=== PATIENT | male | born 1950 | race Caucasian/White ===

== ENCOUNTER 2020-11-16 19:07 | Inpatient (IN) ==
--- NOTE | 2020-11-16 19:21 | DR.URIAD ---
HPI Time Seen Time Seen by Provider: 11/16/20 19:15 HPI Comment HPI Comment: Has been dizzy and falling for the past day after testing positive for covid two weeks ago; cough, congestion, nausea and loss of smell/taste persist; he's been unable to eat and has abd pain and some loose stools; weak ROS Review of Systems Eyes: No Symptoms Reported ENTM: No Symptoms Reported Cardiovascular: No Symptoms Reported Genitourinary: No Symptoms Reported Neurological: No Symptoms Reported Integumentary: No Symptoms Reported Hematologic/Lymphatic: No Symptoms Reported Endocrine: No Symptoms Reported Psychiatric: No Symptoms Reported PE Vital Signs Vitals: Temperature 98.2 F Pulse Rate 81 Respiratory Rate 26 Blood Pressure 109/60 O2 Sat by Pulse Oximetry 90 General Limitations: No Limitations General Appearance: Alert, In No Apparent Distress and Other (appears weak) Head Head Exam: Normal Inspection and Atraumatic Eyes Eye exam: Normal Appearance and PERRL Neck Neck Exam: Normal Inspection, Full ROM and Trachea Midline Chest Chest Inspection: Normal Inspection Respiratory Respiratory Exam: Normal Lung Sounds Bilat Respiratory Exam: Bilateral: Clear to Auscultation Cardiovascular Cardiovascular Exam: Regular Rate and Normal Rhythm Abdominal Exam Abdominal Exam: Normal Inspection, Normal Bowel Sounds and Soft Extremeties Extremities Exam: Normal Inspection Back Back Exam: Normal Inspection Neurologic Neurological Exam: Alert and Oriented X3 Psychiatric Psychiatric Exam: Normal Affect and Normal Mood Skin Skin Exam: Warm, Dry, Intact and Normal Color MDM Differential Diagnosis Differential Diagnosis: Viral pharyngitis, Pneumonia and URI COURSE Treatment Treatment: test results discussed with pt who accepts admission ROR Labs Reviewed Laboratory Results Reviewed?: Yes Result Diagrams: 11/16/20 20:25 11/16/20 20:25 Laboratory: WBC 9.0 X10^3/uL (3.6-10.0) 11/16/20 20:25 RBC 4.35 X10^6/uL (4.7-6.0) L 11/16/20 20:25 Hgb 13.6 g/dL (13.5-18.0) 11/16/20 20:25 Hct 37.2 % (42.0-54.0) L 11/16/20 20:25 MCV 85.7 fL (80.0-100.0) 11/16/20 20:25 MCH 31.2 pg (27.0-34.0) 11/16/20 20:25 MCHC 36.4 g/dL (33.0-35.0) H 11/16/20 20:25 RDW 13.2 % (11.6-16.5) 11/16/20 20:25 Plt Count 185 X10^3/uL (150.0-450.0) 11/16/20 20:25 MPV 7.5 fL (7.4-11.0) 11/16/20 20:25 Neut % (Auto) 89.3 % (42.0-75.0) H 11/16/20 20:25 Lymph % (Auto) 5.3 % (21.0-51.0) L 11/16/20 20:25 [place] % (Auto) 5.1 % (0.0-13.0) 11/16/20 20:25 Eos % (Auto) 0.1 % (0.9-2.9) L 11/16/20 20:25 Baso % (Auto) 0.2 % (0.2-1.0) 11/16/20 20:25 Neut # (Auto) 8.0 x10^3/uL (2.2-4.8) H 11/16/20 20:25 Lymph # (Auto) 0.5 X10^3/uL (1.3-2.9) L 11/16/20 20:25 [place] # (Auto) 0.5 x10^3/uL (0.3-0.8) 11/16/20 20:25 Eos # (Auto) 0.0 x10^3/uL (0.0-0.2) 11/16/20 20:25 Baso # (Auto) 0.0 X10^3/uL (0.0-0.1) 11/16/20 20:25 Absolute Nucleated RBC 0.0 /100WBC 11/16/20 20:25 D-Dimer 1.28 ug/ml (0.0-0.57) H* 11/16/20 20:25 Sample Site Rbra 11/16/20 20:29 ABG pH 7.570 (7.35-7.45) H* 11/16/20 20: ABG pCO2 30.0 mmHg (35.0-45.0) L 11/16/20 20:29 ABG pO2 64.0 mmHg (80.0-100.0) L 11/16/20 20:29 ABG HCO3 27.5 mmol/L (22-26) H 11/16/20 20:29 ABG O2 Saturation 95.0 % (90-100) 11/16/20 20: ABG Base Excess 5.8 mmol/L (-2.0-2.0) H 11/16/20 20:29 Dmitry Test Na 11/16/20 20:29 A-a Gradient 48.0 mmHg 11/16/20 20:29 FiO2 21.0 11/16/20 20:29 Blood Gas Comments Princess well-mtf 11/16/20 20:29 Sodium 137 mmol/L (136-145) 11/16/20 20:25 Corrected Sodium 138 mmol/L (136-145) 11/16/20 20:25 Potassium 4.7 mmol/L (3.5-5.1) 11/16/20 20:25 Chloride 99 mmol/L (98-107) 11/16/20 20:25 Carbon Dioxide 29.7 mmol/L (21-32) 11/16/20 20:25 BUN 34 mg/dL (7-18) H 11/16/20 20:25 Creatinine 1.54 mg/dL (0.70-1.30) H 11/16/20 20:25 Est GFR (MDRD) Af Amer 58 (>60) L 11/16/20 20:25 Est GFR (MDRD) Non-Af 48 (>60) L 11/16/20 20:25 Glucose 128 mg/dL (65-99) H 11/16/20 20:25 Calcium 7.8 mg/dL (8.5-10.1) L 11/16/20 20:25 Corrected Calcium 8.5 mg/dL (8.5-10.1) 11/16/20 20:25 Ferritin 1723 ng/mL (26-388) H 11/16/20 20:25 Total Bilirubin 0.90 mg/dL (0.2-1.0) 11/16/20 20:25 AST 65 Units/L (15-37) H 11/16/20 20:25 ALT 73 Units/L (12-78) 11/16/20 20:25 Alkaline Phosphatase 46 Units/L (46-116) 11/16/20 20:25 Creatine Kinase 286 Units/L (39-308) 11/16/20 20:25 CK-MB (CK-2) < 1.0 ng/mL (0-4.0) 11/16/20 20:25 CK/CKMB % Calc 0.4 % (<4) 11/16/20 20:25 Troponin I < 0.02 ng/mL (0-1.5) 11/16/20 20:25 C-Reactive Protein 191.10 mg/L (0-3.0) H 11/16/20 20:25 B-Natriuretic Peptide 26.2 pg/mL (0-79) 11/16/20 20:25 Total Protein 6.5 g/dL (6.4-8.2) 11/16/20 20:25 Albumin 3.1 g/dL (3.4-5.0) L 11/16/20 20:25 Globulin 3.4 g/dL (2.5-4.5) 11/16/20 20:25 Albumin/Globulin Ratio 0.9 Ratio (1.1-2.1) L 11/16/20 20:25 SARS-CoV-2 (PCR) Positive (NEGATIVE) A 11/16/20 20:44 Influenza Type A (PCR) Negative (NEGATIVE) 11/16/20 20:44 Influenza Type B (PCR) Negative (NEGATIVE) 11/16/20 20:44 RSV (PCR) Negative (NEGATIVE) 11/16/20 20:44 XRAY XRAY Interpreted by: Radiologist X-ray Results: cxr: 1. Mild prominence of the bronchopulmonary markings, mary cially in the middle and lower lung javed, in keeping with bronchitis and interstitial pneumonia (e.g. Covid pneumonia) in the appropriate clinical setting; DDX includes mild noncardiogenic pulmonary congestion in the appropriate clinical setting. 2. Recommend clinical correlation and appropriate follow-up x-ray to ensure interval clearance. 3. Consider follow-up evaluation with noncontrast chest CT to confirm Covid pneumonia as clinically warranted. Opioid Opioid Risk Tool Total: 0 Total Score Risk Category: Low Risk Copyright: [facility] predicting aberrant behaviors Diagnosis Discharge Problem: Insufficiency, respiratory, acute, Hypoxia, Bilateral interstitial pneumonia, COVID-19, Weakness, Acute dehydration Fall Qualifiers: Encounter type: initial encounter Qualified Code(s): W19.XXXA - Unspecified fall, initial encounter Instructions Instructions: Community-Acquired Pneumonia, Adult, [id number] Forms: Patient Portal Social Distancing
[2020-11-16] MEDS ORDERED: NS 1000 ML 1,000 ML ONE ×2 (20:12→22:05)
[2020-11-16] MEDS ORDERED: NS 1000 ML 1,000 ML IV ONE (20:12)
[2020-11-16 20:33] LABS: ABG BASE EXCESS 5.8 mmol/L (-2.0-2.0); ABG HCO3 27.5 mmol/L (22-26)
[2020-11-16 20:37] LABS: LYMPHOCYTES # (AUTO) 0.5 X10^3/uL (1.3-2.9); RED CELL DISTRIBUTION WIDTH 13.2 % (11.6-16.5)
[2020-11-16 20:40] LABS: BASOPHILS % (AUTO) 0.2 % (0.2-1.0); EOSINOPHILS % (AUTO) 0.1 % (0.9-2.9); HEMATOCRIT 37.2 % (42.0-54.0); HEMOGLOBIN 13.6 g/dL (13.5-18.0); LYMPHOCYTES % (AUTO) 5.3 % (21.0-51.0); MEAN CORPUSCULAR HEMOGLOBIN 31.2 pg (27.0-34.0); MEAN CORPUSCULAR HGB CONC 36.4 g/dL (33.0-35.0); MEAN CORPUSCULAR VOLUME 85.7 fL (80.0-100.0); MEAN PLATELET VOLUME 7.5 fL (7.4-11.0); MONOCYTES # (AUTO) 0.5 x10^3/uL (0.3-0.8); MONOCYTES % (AUTO) 5.1 % (0.0-13.0); NEUTROPHILS % (AUTO) 89.3 % (42.0-75.0); PLATELET COUNT 185 X10^3/uL (150.0-450.0); RED BLOOD COUNT 4.35 X10^6/uL (4.7-6.0)
[2020-11-16 20:55] LABS: ALANINE AMINOTRANSFERASE 73 Units/L (12-78); ALBUMIN 3.1 g/dL (3.4-5.0); ALKALINE PHOSPHATASE 46 Units/L (46-116); ASPARTATE AMINO TRANSFERASE 65 Units/L (15-37); BLOOD UREA NITROGEN 34 mg/dL (7-18); CALCIUM 7.8 mg/dL (8.5-10.1); CARBON DIOXIDE 29.7 mmol/L (21-32); CHLORIDE 99 mmol/L (98-107); CKMB % 0.4 % (<4); COR CA(FOR HYPOALB) 8.5 mg/dL (8.5-10.1); COR NA(FOR HYPERGLY) 138 mmol/L (136-145); CREATINE KINASE 286 Units/L (39-308); CREATINE KINASE MB < 1.0 ng/mL (0-4.0); CREATININE 1.54 mg/dL (0.70-1.30); SODIUM 137 mmol/L (136-145); TOTAL PROTEIN 6.5 g/dL (6.4-8.2); TROPONIN I < 0.02 ng/mL (0-1.5); eGFR NON BLACK RACES 48 (>60)
--- NOTE | 2020-11-16 21:37 | RAD ---
EXAM: CHEST X-RAYHISTORY: COVID-19 positive. Dizziness. Loss of appetite.TECHNIQUE: AP chest x-ray dated November 16, 2020 at 8:33 PM.COMPARISON: None available.FINDINGS:There is mild prominence of the bronchopulmonary markings, especially in the middle and lower lung javed, in keeping with bronchitis and interstitial pneumonia (e.g. Covid pneumonia) in the appropriate clinical setting; DDX includes mild noncardiogenic pulmonary congestion in the appropriate clinical setting. Clinical correlation is advised.No focal lung consolidation/mass, pleural effusion, or pneumothorax is seen.The heart size and mediastinum are within normal limits. The visualized bony structures are within normal limits.IMPRESSION:1. Mild prominence of the bronchopulmonary markings, especially in the middle and lower lung javed, in keeping with bronchitis and interstitial pneumonia (e.g. Covid pneumonia) in the appropriate clinical setting; DDX includes mild noncardiogenic pulmonary congestion in the appropriate clinical setting.2. Recommend clinical correlation and appropriate follow-up x-ray to ensure interval clearance.3. Consider follow-up evaluation with noncontrast chest CT to confirm Covid pneumonia as clinically warranted.Electronically signed by: Shan Payton (Nov 16, 2020 21:35:50)
[2020-11-16] MEDS ORDERED: SOLU-Medrol 125 MG VIAL IVP ONE ×2 (22:06→23:30)
[2020-11-16] MEDS: NS 1000 ML 1,000 ML IV ONE (22:09)
[2020-11-16] MEDS ORDERED: LEVAQUIN PREMIX IV 500 MG 500 MG/100 ML BAG IV ONE (22:09)
[2020-11-16] MEDS: LEVAQUIN PREMIX IV 500 MG 500 MG/100 ML BAG IV SCH (22:15)
[2020-11-16] MEDS ORDERED: ZOFRAN INJ 4 MG VIAL IVP PRN (23:33)
[2020-11-16] MEDS ORDERED: TUSSIONEX PENNKINETIC SUSP PO PRN (23:33)
[2020-11-16] MEDS ORDERED: NS 1000 ML 1,000 ML IV SCH (23:45)
[2020-11-17] MEDS ORDERED: SOLU-Medrol 125 MG VIAL ONE ×2 (01:05→07:14)
[2020-11-17] MEDS ORDERED: NS 1000 ML 1,000 ML ONE (01:05)
[2020-11-17 06:16] LABS: BASOPHILS % (AUTO) 0.1 % (0.2-1.0); HEMATOCRIT 33.1 % (42.0-54.0); LYMPHOCYTES # (AUTO) 0.4 X10^3/uL (1.3-2.9); MEAN CORPUSCULAR HEMOGLOBIN 31.4 pg (27.0-34.0); MEAN CORPUSCULAR HGB CONC 36.3 g/dL (33.0-35.0); MEAN CORPUSCULAR VOLUME 86.5 fL (80.0-100.0); MEAN PLATELET VOLUME 7.7 fL (7.4-11.0); MONOCYTES # (AUTO) 0.2 x10^3/uL (0.3-0.8); MONOCYTES % (AUTO) 2.9 % (0.0-13.0); NEUTROPHILS # (AUTO) 6.1 x10^3/uL (2.2-4.8); PLATELET COUNT 171 X10^3/uL (150.0-450.0); RED BLOOD COUNT 3.83 X10^6/uL (4.7-6.0); RED CELL DISTRIBUTION WIDTH 13.6 % (11.6-16.5); WHITE BLOOD COUNT 6.7 X10^3/uL (3.6-10.0)
[2020-11-17 06:21] LABS: ALANINE AMINOTRANSFERASE 60 Units/L (12-78); ALBUMIN 2.5 g/dL (3.4-5.0); ALKALINE PHOSPHATASE 36 Units/L (46-116); ASPARTATE AMINO TRANSFERASE 46 Units/L (15-37); BLOOD UREA NITROGEN 28 mg/dL (7-18); CALCIUM 7.4 mg/dL (8.5-10.1); CARBON DIOXIDE 26.2 mmol/L (21-32); CHLORIDE 103 mmol/L (98-107); COR CA(FOR HYPOALB) 8.6 mg/dL (8.5-10.1); COR NA(FOR HYPERGLY) 139 mmol/L (136-145); CREATININE 1.08 mg/dL (0.70-1.30); SODIUM 138 mmol/L (136-145); TOTAL PROTEIN 6.4 g/dL (6.4-8.2); eGFR NON BLACK RACES > 60 (>60)
[2020-11-17] MEDS ORDERED: PERIACTIN TAB 4 MG PO PRN (08:10)
[2020-11-17] MEDS: SOLU-Medrol 125 MG VIAL IVP SCH ×3 (08:35→21:52)
[2020-11-17] MEDS ORDERED: PULMICORT NEB TX 0.5 MG NEB SCH (09:00)
[2020-11-17] MEDS ORDERED: BROVANA IN SCH (09:00)
[2020-11-17] MEDS ORDERED: LEVAQUIN PREMIX IV 500 MG 500 MG/100 ML BAG IV SCH ×2 (09:00→22:00)
[2020-11-17] MEDS ORDERED: PHARMACY CONSULT - IVERMECTIN XX SCH (09:00)
[2020-11-17] MEDS ORDERED: VITAMIN D (1.25MG) PO SCH (09:00)
[2020-11-17] MEDS ORDERED: VITAMIN A PO SCH (09:00)
[2020-11-17] MEDS ORDERED: PHARMACY CONSULT - LOVENOX XX SCH (09:00)
[2020-11-17] MEDS ORDERED: SOLU-Medrol 125 MG VIAL IVP SCH (09:00)
[2020-11-17] MEDS: BROVANA IN SCH ×2 (09:20→20:47)
[2020-11-17] MEDS: PROVENTIL NEB TX 0.083% 2.5MG/ 3ML NEB PRN (09:20)
[2020-11-17 09:32] LABS: BAND NEUTROPHILS % 3 % (0-10); PLATELET MORPHOLOGY COMMENT NORMAL (NORMAL)
[2020-11-17] MEDS ORDERED: IVERMECTIN ONE (09:40)
[2020-11-17] MEDS ORDERED: LOVENOX INJ 80 MG SYR SC ONE ×2 (09:40→19:49)
[2020-11-17] MEDS ORDERED: LIPITOR TAB 80 MG ONE (09:40)
[2020-11-17] MEDS ORDERED: NS 50 ML IV 50 ML IV ONE ×2 (09:41→19:50)
[2020-11-17] MEDS ORDERED: PEPCID TAB 40 MG ONE ×2 (09:41→19:49)
[2020-11-17] MEDS ORDERED: NS 1/2 1000 ML IV 1,000 ML IV ONE ×2 (09:41→20:53)
[2020-11-17] MEDS ORDERED: PROTONIX INJ 40 MG VIAL ONE ×2 (09:41→19:50)
[2020-11-17] MEDS: ASCORBIC ACID INJ MULTI-DOSE VIAL 1,500 MG in NS 100 ML IV 100 ML IV SCH ×3 (09:47→21:51)
[2020-11-17] MEDS: CYTOTEC PO SCH ×3 (09:49→21:52)
[2020-11-17] MEDS: AVODART PO SCH (09:49)
[2020-11-17] MEDS: LIPITOR TAB 80 MG PO SCH (09:49)
[2020-11-17] MEDS: IVERMECTIN PO SCH (09:49)
[2020-11-17] MEDS: LOVENOX INJ 80 MG SYR SC SCH ×2 (09:50→21:50)
[2020-11-17] MEDS: NS 1/2 1000 ML IV 1,000 ML IV SCH ×2 (09:50→21:50)
[2020-11-17] MEDS: PROTONIX INJ 40 MG VIAL IVP SCH ×2 (09:51→21:51)
[2020-11-17] MEDS: THIAMINE HCL INJ IVP SCH ×2 (09:51→21:51)
[2020-11-17] MEDS: ZINC SULFATE PO SCH ×2 (09:51→21:51)
[2020-11-17] MEDS: PEPCID TAB 40 MG PO SCH ×2 (09:51→21:51)
[2020-11-17] MEDS: PULMICORT NEB TX 0.5 MG NEB SCH ×2 (10:34→20:47)
[2020-11-17] MEDS ORDERED: ZINC SULFATE ONE (19:49)
[2020-11-17] MEDS ORDERED: MELATONIN ONE (19:49)
[2020-11-17] MEDS ORDERED: THIAMINE HCL INJ ONE (19:49)
[2020-11-17] MEDS ORDERED: ASCORBIC ACID INJ MULTI-DOSE VIAL IV ONE (19:50)
[2020-11-17] MEDS: MELATONIN PO SCH (21:50)
[2020-11-18] MEDS ORDERED: SOLU-Medrol 40 MG VIAL ONE (02:56)
[2020-11-18] MEDS ORDERED: NS 50 ML IV 50 ML IV ONE ×3 (02:56→13:56)
[2020-11-18] MEDS ORDERED: ASCORBIC ACID INJ MULTI-DOSE VIAL IV ONE ×4 (02:56→23:02)
[2020-11-18] MEDS: NS 1/2 1000 ML IV 1,000 ML IV SCH ×3 (03:17→14:27)
[2020-11-18] MEDS: ASCORBIC ACID INJ MULTI-DOSE VIAL 1,500 MG in NS 100 ML IV 100 ML IV SCH ×4 (03:18→23:12)
[2020-11-18] MEDS: SOLU-Medrol 125 MG VIAL IVP SCH ×4 (03:18→22:00)
[2020-11-18] MEDS: CYTOTEC PO SCH ×3 (05:38→22:00)
[2020-11-18 07:15] LABS: ALANINE AMINOTRANSFERASE 59 Units/L (12-78); ALBUMIN 2.4 g/dL (3.4-5.0); ALKALINE PHOSPHATASE 34 Units/L (46-116); ASPARTATE AMINO TRANSFERASE 39 Units/L (15-37); BLOOD UREA NITROGEN 23 mg/dL (7-18); CALCIUM 7.2 mg/dL (8.5-10.1); CARBON DIOXIDE 27.8 mmol/L (21-32); CHLORIDE 104 mmol/L (98-107); COR CA(FOR HYPOALB) 8.5 mg/dL (8.5-10.1); COR NA(FOR HYPERGLY) 140 mmol/L (136-145); CREATININE 1.24 mg/dL (0.70-1.30); SODIUM 138 mmol/L (136-145); eGFR NON BLACK RACES > 60 (>60)
[2020-11-18 07:26] LABS: BASOPHILS % (AUTO) 0.1 % (0.2-1.0); HEMATOCRIT 33.4 % (42.0-54.0); HEMOGLOBIN 11.8 g/dL (13.5-18.0); LYMPHOCYTES # (AUTO) 0.6 X10^3/uL (1.3-2.9); LYMPHOCYTES % (AUTO) 6.6 % (21.0-51.0); MEAN CORPUSCULAR HEMOGLOBIN 31.2 pg (27.0-34.0); MEAN CORPUSCULAR HGB CONC 35.3 g/dL (33.0-35.0); MEAN CORPUSCULAR VOLUME 88.4 fL (80.0-100.0); MONOCYTES # (AUTO) 0.4 x10^3/uL (0.3-0.8); MONOCYTES % (AUTO) 4.1 % (0.0-13.0); NEUTROPHILS # (AUTO) 8.3 x10^3/uL (2.2-4.8); NEUTROPHILS % (AUTO) 89.2 % (42.0-75.0); PLATELET COUNT 177 X10^3/uL (150.0-450.0); RED BLOOD COUNT 3.78 X10^6/uL (4.7-6.0); RED CELL DISTRIBUTION WIDTH 13.3 % (11.6-16.5); WHITE BLOOD COUNT 9.3 X10^3/uL (3.6-10.0)
[2020-11-18] MEDS: PULMICORT NEB TX 0.5 MG NEB SCH ×2 (08:44→21:40)
[2020-11-18] MEDS: BROVANA IN SCH ×2 (08:44→21:40)
[2020-11-18] MEDS ORDERED: AVODART PO ONE (09:28)
[2020-11-18] MEDS ORDERED: ZINC SULFATE ONE ×2 (09:28→21:41)
[2020-11-18] MEDS ORDERED: THIAMINE HCL INJ ONE ×2 (09:28→21:40)
[2020-11-18] MEDS ORDERED: LOVENOX INJ 80 MG SYR SC ONE (09:28)
[2020-11-18] MEDS ORDERED: PROTONIX INJ 40 MG VIAL ONE ×2 (09:29→21:41)
[2020-11-18] MEDS ORDERED: PEPCID TAB 40 MG ONE (09:29)
[2020-11-18] MEDS: LOVENOX INJ 80 MG SYR SC SCH ×2 (09:35→22:00)
[2020-11-18] MEDS: AVODART PO SCH (09:35)
[2020-11-18] MEDS: PEPCID TAB 40 MG PO SCH ×2 (09:36→22:00)
[2020-11-18] MEDS: PROTONIX INJ 40 MG VIAL IVP SCH ×2 (09:36→22:00)
[2020-11-18] MEDS: THIAMINE HCL INJ IVP SCH ×2 (09:38→22:00)
[2020-11-18] MEDS: ZINC SULFATE PO SCH ×2 (09:38→22:00)
[2020-11-18] MEDS ORDERED: LIPITOR TAB 80 MG ONE (09:45)
[2020-11-18] MEDS ORDERED: SOLU-Medrol 125 MG VIAL ONE ×3 (09:45→21:40)
[2020-11-18] MEDS ORDERED: IVERMECTIN ONE (09:45)
[2020-11-18] MEDS: LIPITOR TAB 80 MG PO SCH (09:48)
[2020-11-18] MEDS: IVERMECTIN PO SCH (09:48)
[2020-11-18] MEDS ORDERED: NS 1/2 1000 ML IV 1,000 ML IV ONE (13:56)
[2020-11-18] MEDS ORDERED: LOVENOX INJ 100 MG SYR SC ONE (21:40)
[2020-11-18] MEDS ORDERED: MELATONIN ONE (21:40)
[2020-11-18] MEDS ORDERED: PEPCID TAB 20 MG ONE (21:40)
[2020-11-18] MEDS ORDERED: TYLENOL 325 MG TAB PO ONE (21:56)
[2020-11-18] MEDS: TYLENOL 325 MG TAB PO PRN (22:00)
[2020-11-18] MEDS: MELATONIN PO SCH (22:00)
[2020-11-18] MEDS ORDERED: NS 100 ML IV 100 ML ONE (23:02)
[2020-11-19] MEDS ORDERED: SOLU-Medrol 125 MG VIAL ONE ×5 (01:57→19:41)
[2020-11-19] MEDS ORDERED: NS 100 ML IV 100 ML ONE (01:57)
[2020-11-19] MEDS ORDERED: ASCORBIC ACID INJ MULTI-DOSE VIAL IV ONE ×4 (01:58→19:41)
[2020-11-19] MEDS ORDERED: NS 1/2 1000 ML IV 1,000 ML IV ONE ×2 (03:28→21:09)
[2020-11-19] MEDS: ASCORBIC ACID INJ MULTI-DOSE VIAL 1,500 MG in NS 100 ML IV 100 ML IV SCH ×4 (03:42→21:28)
[2020-11-19] MEDS: SOLU-Medrol 125 MG VIAL IVP SCH ×5 (03:43→21:29)
[2020-11-19] MEDS: NS 1/2 1000 ML IV 1,000 ML IV SCH ×4 (05:12→21:26)
[2020-11-19] MEDS: CYTOTEC PO SCH ×3 (05:13→21:28)
[2020-11-19 05:45] LABS: BASOPHILS % (AUTO) 0.2 % (0.2-1.0); HEMATOCRIT 31.2 % (42.0-54.0); HEMOGLOBIN 11.3 g/dL (13.5-18.0); LYMPHOCYTES # (AUTO) 0.3 X10^3/uL (1.3-2.9); LYMPHOCYTES % (AUTO) 3.7 % (21.0-51.0); MEAN CORPUSCULAR HEMOGLOBIN 31.1 pg (27.0-34.0); MEAN CORPUSCULAR VOLUME 86.2 fL (80.0-100.0); MEAN PLATELET VOLUME 7.9 fL (7.4-11.0); MONOCYTES # (AUTO) 0.3 x10^3/uL (0.3-0.8); MONOCYTES % (AUTO) 3.3 % (0.0-13.0); NEUTROPHILS # (AUTO) 7.4 x10^3/uL (2.2-4.8); NEUTROPHILS % (AUTO) 92.8 % (42.0-75.0); PLATELET COUNT 196 X10^3/uL (150.0-450.0); RED BLOOD COUNT 3.62 X10^6/uL (4.7-6.0); RED CELL DISTRIBUTION WIDTH 13.3 % (11.6-16.5)
[2020-11-19 05:55] LABS: ALANINE AMINOTRANSFERASE 59 Units/L (12-78); ALBUMIN 2.4 g/dL (3.4-5.0); ALKALINE PHOSPHATASE 36 Units/L (46-116); ASPARTATE AMINO TRANSFERASE 42 Units/L (15-37); BLOOD UREA NITROGEN 20 mg/dL (7-18); CALCIUM 6.9 mg/dL (8.5-10.1); CARBON DIOXIDE 30.4 mmol/L (21-32); CHLORIDE 104 mmol/L (98-107); COR CA(FOR HYPOALB) 8.2 mg/dL (8.5-10.1); COR NA(FOR HYPERGLY) 142 mmol/L (136-145); SODIUM 140 mmol/L (136-145); TOTAL PROTEIN 5.8 g/dL (6.4-8.2); eGFR NON BLACK RACES > 60 (>60)
[2020-11-19 06:09] LABS: ABG ALLEN TEST POS; ABG BASE EXCESS 5.9 mmol/L (-2.0-2.0); ABG HCO3 29.7 mmol/L (22-26)
[2020-11-19 06:14] LABS: BAND NEUTROPHILS % 6 % (0-10); PLATELET MORPHOLOGY COMMENT NORMAL (NORMAL)
[2020-11-19] MEDS ORDERED: LIPITOR TAB 80 MG ONE (07:50)
[2020-11-19] MEDS ORDERED: VITAMIN D3 125 mcg (5,000 UNITS) ONE (07:50)
[2020-11-19] MEDS ORDERED: THIAMINE HCL INJ ONE ×2 (07:50→19:41)
[2020-11-19] MEDS ORDERED: PROTONIX INJ 40 MG VIAL ONE ×2 (07:51→21:30)
[2020-11-19] MEDS ORDERED: NS 50 ML IV 50 ML IV ONE ×3 (07:51→19:42)
--- NOTE | 2020-11-19 08:10 | RAD ---
HISTORYCOVID+STUDYCHEST x-ray, 1 VIEWCOMPARISONX-ray 11/16/2020FINDINGSProbable mild worsening of bilateral lung infiltrates. Findings suggest moderate COVID-19 pneumonia. Left CP angle is slightly blunted suggesting possible small pleural effusion. Heart is normal in size. No pneumothorax is seen.IMPRESSIONMild worsening of moderate COVID-19 pneumonia.Electronically signed by: Buddy Marcano (Nov 19, 2020 08:08:42)
[2020-11-19] MEDS: PEPCID TAB 40 MG PO SCH ×2 (08:56→21:29)
[2020-11-19] MEDS: ZINC SULFATE PO SCH ×2 (08:56→21:29)
[2020-11-19] MEDS: VITAMIN A PO SCH (08:56)
[2020-11-19] MEDS: THIAMINE HCL INJ IVP SCH ×2 (08:56→21:28)
[2020-11-19] MEDS: AVODART PO SCH (08:56)
[2020-11-19] MEDS: PROTONIX INJ 40 MG VIAL IVP SCH ×2 (08:57→21:36)
[2020-11-19] MEDS: VITAMIN D3 125 mcg (5,000 UNITS) PO SCH (08:57)
[2020-11-19] MEDS: PROVENTIL NEB TX 0.083% 2.5MG/ 3ML NEB PRN (08:57)
[2020-11-19] MEDS: BROVANA IN SCH ×2 (08:57→23:06)
[2020-11-19] MEDS: PULMICORT NEB TX 0.5 MG NEB SCH ×2 (08:57→23:07)
[2020-11-19] MEDS: LOVENOX INJ 80 MG SYR SC SCH ×2 (08:57→21:29)
[2020-11-19] MEDS: IVERMECTIN PO SCH (08:58)
[2020-11-19] MEDS: LIPITOR TAB 80 MG PO SCH (08:58)
[2020-11-19] MEDS: DIFLUCAN PO SCH (11:20)
[2020-11-19] MEDS ORDERED: ZINC SULFATE ONE (19:41)
[2020-11-19] MEDS ORDERED: PEPCID TAB 40 MG ONE (19:41)
[2020-11-19] MEDS ORDERED: CYTOTEC ONE (19:41)
[2020-11-19] MEDS ORDERED: PROTONIX TAB 40 MG PO ONE (19:41)
[2020-11-19] MEDS ORDERED: MELATONIN ONE (19:41)
[2020-11-19] MEDS ORDERED: LOVENOX INJ 80 MG SYR SC ONE (19:41)
[2020-11-19] MEDS: MELATONIN PO SCH (21:28)
[2020-11-20] MEDS ORDERED: SOLU-Medrol 125 MG VIAL ONE ×4 (02:37→19:51)
[2020-11-20] MEDS ORDERED: CYTOTEC ONE ×4 (02:37→19:56)
[2020-11-20] MEDS ORDERED: NS 1/2 1000 ML IV 1,000 ML IV ONE ×3 (02:37→21:25)
[2020-11-20] MEDS ORDERED: NS 50 ML IV 50 ML IV ONE (02:38)
[2020-11-20] MEDS ORDERED: ASCORBIC ACID INJ MULTI-DOSE VIAL IV ONE ×4 (02:38→19:52)
[2020-11-20] MEDS: SOLU-Medrol 125 MG VIAL IVP SCH ×4 (03:16→20:22)
[2020-11-20] MEDS: ASCORBIC ACID INJ MULTI-DOSE VIAL 1,500 MG in NS 100 ML IV 100 ML IV SCH ×4 (03:16→20:32)
[2020-11-20] MEDS ORDERED: TYLENOL 325 MG TAB PO ONE (04:20)
[2020-11-20] MEDS: TYLENOL 325 MG TAB PO PRN (04:23)
[2020-11-20] MEDS: NS 1/2 1000 ML IV 1,000 ML IV SCH ×4 (04:23→23:38)
[2020-11-20] MEDS: CYTOTEC PO SCH ×3 (05:25→21:07)
[2020-11-20 06:28] LABS: ABG ALLEN TEST POS
[2020-11-20 06:31] LABS: BASOPHILS % (AUTO) 0.1 % (0.2-1.0); HEMATOCRIT 29.7 % (42.0-54.0); HEMOGLOBIN 10.7 g/dL (13.5-18.0); LYMPHOCYTES # (AUTO) 0.2 X10^3/uL (1.3-2.9); LYMPHOCYTES % (AUTO) 2.8 % (21.0-51.0); MEAN CORPUSCULAR HEMOGLOBIN 31.1 pg (27.0-34.0); MEAN CORPUSCULAR HGB CONC 36.1 g/dL (33.0-35.0); MEAN CORPUSCULAR VOLUME 86.2 fL (80.0-100.0); MONOCYTES # (AUTO) 0.3 x10^3/uL (0.3-0.8); MONOCYTES % (AUTO) 4.4 % (0.0-13.0); NEUTROPHILS # (AUTO) 7.2 x10^3/uL (2.2-4.8); NEUTROPHILS % (AUTO) 92.7 % (42.0-75.0); PLATELET COUNT 211 X10^3/uL (150.0-450.0); RED BLOOD COUNT 3.44 X10^6/uL (4.7-6.0); WHITE BLOOD COUNT 7.7 X10^3/uL (3.6-10.0)
[2020-11-20 07:01] LABS: ALANINE AMINOTRANSFERASE 89 Units/L (12-78); ALBUMIN 2.3 g/dL (3.4-5.0); ALKALINE PHOSPHATASE 49 Units/L (46-116); ASPARTATE AMINO TRANSFERASE 72 Units/L (15-37); BLOOD UREA NITROGEN 19 mg/dL (7-18); CALCIUM 6.7 mg/dL (8.5-10.1); CARBON DIOXIDE 32.5 mmol/L (21-32); CHLORIDE 103 mmol/L (98-107); COR CA(FOR HYPOALB) 8.1 mg/dL (8.5-10.1); COR NA(FOR HYPERGLY) 142 mmol/L (136-145); CREATININE 1.08 mg/dL (0.70-1.30); SODIUM 140 mmol/L (136-145); TOTAL PROTEIN 5.7 g/dL (6.4-8.2); eGFR NON BLACK RACES > 60 (>60)
--- NOTE | 2020-11-20 08:08 | RAD ---
HISTORYCOVID+STUDYCHEST, 1 [id number]/31/2021FINDINGSPatchy areas of opacity compatible with bronchopneumonia unchanged. No pleural effusion. No pneumothorax.Heart size is normal.Bones are unremarkable.EKG leads are noted.IMPRESSION1. Unchanged bronchopneumoniaElectronically signed by: Stepan Carpenter (Nov 20, 2020 08:06:53)
[2020-11-20 08:09] LABS: PLATELET MORPHOLOGY COMMENT NORMAL (NORMAL)
[2020-11-20] MEDS ORDERED: AVODART PO ONE (08:24)
[2020-11-20] MEDS ORDERED: LOVENOX INJ 80 MG SYR SC ONE ×2 (08:24→19:50)
[2020-11-20] MEDS ORDERED: DIFLUCAN ONE (08:24)
[2020-11-20] MEDS ORDERED: LIPITOR TAB 80 MG ONE (08:24)
[2020-11-20] MEDS ORDERED: THIAMINE HCL INJ ONE ×2 (08:24→19:50)
[2020-11-20] MEDS ORDERED: PEPCID TAB 40 MG ONE ×2 (08:25→19:51)
[2020-11-20] MEDS ORDERED: ZINC SULFATE ONE ×2 (08:25→19:51)
[2020-11-20] MEDS ORDERED: VITAMIN D3 125 mcg (5,000 UNITS) ONE (08:25)
[2020-11-20] MEDS ORDERED: NS 100 ML IV 100 ML ONE ×3 (08:25→19:51)
[2020-11-20] MEDS ORDERED: PROTONIX INJ 40 MG VIAL ONE ×2 (08:25→19:51)
[2020-11-20 08:55] LABS: ABG BASE EXCESS 2.2 mmol/L (-2.0-2.0)
[2020-11-20 08:56] LABS: ABG HCO3 24.7 mmol/L (22-26)
[2020-11-20] MEDS: BROVANA IN SCH ×2 (09:25→20:41)
[2020-11-20] MEDS: PULMICORT NEB TX 0.5 MG NEB SCH ×2 (09:25→20:41)
[2020-11-20] MEDS: VITAMIN D3 125 mcg (5,000 UNITS) PO SCH (09:45)
[2020-11-20] MEDS: ZINC SULFATE PO SCH ×2 (09:45→20:10)
[2020-11-20] MEDS: VITAMIN A PO SCH (09:45)
[2020-11-20] MEDS: THIAMINE HCL INJ IVP SCH ×2 (09:46→20:26)
[2020-11-20] MEDS: PROTONIX INJ 40 MG VIAL IVP SCH ×2 (09:46→20:15)
[2020-11-20] MEDS: PEPCID TAB 40 MG PO SCH ×2 (09:46→20:10)
[2020-11-20] MEDS: LOVENOX INJ 80 MG SYR SC SCH ×2 (09:47→20:50)
[2020-11-20] MEDS: LIPITOR TAB 80 MG PO SCH (09:47)
[2020-11-20] MEDS: IVERMECTIN PO SCH (09:47)
[2020-11-20] MEDS: DIFLUCAN PO SCH (09:48)
[2020-11-20] MEDS: AVODART PO SCH (09:48)
[2020-11-20] MEDS ORDERED: MELATONIN ONE (19:50)
[2020-11-20] MEDS: MELATONIN PO SCH (20:10)
[2020-11-20] MEDS ORDERED: LOVENOX INJ 100 MG SYR SC ONE (20:26)
[2020-11-21] MEDS ORDERED: SOLU-Medrol 125 MG VIAL ONE ×3 (03:25→13:15)
[2020-11-21] MEDS ORDERED: ASCORBIC ACID INJ MULTI-DOSE VIAL IV ONE ×3 (03:25→13:16)
[2020-11-21] MEDS ORDERED: NS 100 ML IV 100 ML ONE ×3 (03:25→13:17)
[2020-11-21] MEDS ORDERED: CYTOTEC ONE ×2 (03:27→13:15)
[2020-11-21] MEDS: SOLU-Medrol 125 MG VIAL IVP SCH ×5 (03:55→21:21)
[2020-11-21] MEDS: ASCORBIC ACID INJ MULTI-DOSE VIAL 1,500 MG in NS 100 ML IV 100 ML IV SCH ×4 (04:00→21:00)
[2020-11-21 04:13] LABS: ABG ALLEN TEST POS; ABG BASE EXCESS 10.6 mmol/L (-2.0-2.0); ABG HCO3 35.1 mmol/L (22-26)
[2020-11-21] MEDS: CYTOTEC PO SCH ×3 (05:11→22:22)
[2020-11-21] MEDS: NS 1/2 1000 ML IV 1,000 ML IV SCH ×5 (05:15→20:26)
[2020-11-21 06:40] LABS: ALANINE AMINOTRANSFERASE 135 Units/L (12-78); ALBUMIN 2.3 g/dL (3.4-5.0); ALKALINE PHOSPHATASE 61 Units/L (46-116); ASPARTATE AMINO TRANSFERASE 88 Units/L (15-37); BLOOD UREA NITROGEN 19 mg/dL (7-18); CALCIUM 6.7 mg/dL (8.5-10.1); CARBON DIOXIDE 33.8 mmol/L (21-32); CHLORIDE 103 mmol/L (98-107); COR CA(FOR HYPOALB) 8.1 mg/dL (8.5-10.1); COR NA(FOR HYPERGLY) 146 mmol/L (136-145); CREATININE 1.25 mg/dL (0.70-1.30); SODIUM 143 mmol/L (136-145); TOTAL PROTEIN 5.6 g/dL (6.4-8.2); eGFR NON BLACK RACES > 60 (>60)
[2020-11-21 06:55] LABS: BASOPHILS % (AUTO) 0.1 % (0.2-1.0); HEMATOCRIT 29.1 % (42.0-54.0); HEMOGLOBIN 10.5 g/dL (13.5-18.0); LYMPHOCYTES # (AUTO) 0.2 X10^3/uL (1.3-2.9); LYMPHOCYTES % (AUTO) 3.1 % (21.0-51.0); MEAN CORPUSCULAR HEMOGLOBIN 31.5 pg (27.0-34.0); MEAN CORPUSCULAR HGB CONC 36.3 g/dL (33.0-35.0); MEAN CORPUSCULAR VOLUME 86.8 fL (80.0-100.0); MEAN PLATELET VOLUME 8.2 fL (7.4-11.0); MONOCYTES # (AUTO) 0.3 x10^3/uL (0.3-0.8); MONOCYTES % (AUTO) 4.8 % (0.0-13.0); NEUTROPHILS # (AUTO) 6.2 x10^3/uL (2.2-4.8); PLATELET COUNT 209 X10^3/uL (150.0-450.0); RED BLOOD COUNT 3.35 X10^6/uL (4.7-6.0); RED CELL DISTRIBUTION WIDTH 12.9 % (11.6-16.5); WHITE BLOOD COUNT 6.7 X10^3/uL (3.6-10.0)
[2020-11-21 07:25] LABS: PLATELET MORPHOLOGY COMMENT NORMAL (NORMAL)
[2020-11-21] MEDS ORDERED: IVERMECTIN ONE (08:13)
[2020-11-21] MEDS ORDERED: THIAMINE HCL INJ ONE (08:13)
[2020-11-21] MEDS ORDERED: DIFLUCAN ONE (08:13)
[2020-11-21] MEDS ORDERED: AVODART PO ONE (08:13)
[2020-11-21] MEDS ORDERED: PROTONIX INJ 40 MG VIAL ONE (08:14)
[2020-11-21] MEDS ORDERED: PEPCID TAB 40 MG ONE (08:14)
[2020-11-21] MEDS ORDERED: LIPITOR TAB 80 MG ONE (08:14)
[2020-11-21] MEDS ORDERED: VITAMIN D3 125 mcg (5,000 UNITS) ONE (08:14)
[2020-11-21] MEDS ORDERED: ZINC SULFATE ONE (08:14)
[2020-11-21] MEDS ORDERED: NS 1/2 1000 ML IV 1,000 ML IV ONE ×2 (08:18→20:21)
--- NOTE | 2020-11-21 08:20 | RAD ---
HISTORYCOVID+STUDYCHEST, 1 [id number]/01/2021FINDINGSThe lungs are not as well inflated as on the prior study.Focal areas of opacity in the left and right lung are consistent with bronchopneumonia. Probably not changed significantly when accounting for the decreased inflation.No pleural effusion or pneumothorax.Heart size is normal.Bones are unremarkable.EKG leads are noted.IMPRESSION1. Decreased inflation2. Unchanged bronchopneumoniaElectronically signed by: Stepan Carpenter (Nov 21, 2020 08:18:11)
[2020-11-21] MEDS: AVODART PO SCH (08:22)
[2020-11-21] MEDS: VITAMIN D3 125 mcg (5,000 UNITS) PO SCH (08:23)
[2020-11-21] MEDS: DIFLUCAN PO SCH (08:23)
[2020-11-21] MEDS: THIAMINE HCL INJ IVP SCH (08:23)
[2020-11-21] MEDS: PROTONIX INJ 40 MG VIAL IVP SCH ×2 (08:24→21:21)
[2020-11-21] MEDS: LIPITOR TAB 80 MG PO SCH (08:24)
[2020-11-21] MEDS: IVERMECTIN PO SCH (08:24)
[2020-11-21] MEDS: ZINC SULFATE PO SCH ×2 (08:25→21:22)
[2020-11-21] MEDS: PEPCID TAB 40 MG PO SCH ×2 (08:26→21:20)
[2020-11-21] MEDS: VITAMIN A PO SCH (08:26)
[2020-11-21] MEDS: BROVANA IN SCH ×2 (09:00→20:15)
[2020-11-21] MEDS: PROVENTIL NEB TX 0.083% 2.5MG/ 3ML NEB PRN ×2 (09:00→20:15)
[2020-11-21] MEDS: PULMICORT NEB TX 0.5 MG NEB SCH ×2 (09:00→20:15)
[2020-11-21] MEDS: ACTOS PO SCH (09:14)
[2020-11-21] MEDS: GLUCOPHAGE XR 24-HR PO SCH ×2 (09:15→21:18)
[2020-11-21] MEDS: COREG TAB 12.5 MG PO SCH ×2 (09:15→21:18)
[2020-11-21] MEDS ORDERED: LOVENOX INJ 80 MG SYR SC ONE (09:16)
[2020-11-21] MEDS: LOVENOX INJ 80 MG SYR SC SCH (09:24)
[2020-11-21] MEDS ORDERED: TYLENOL 325 MG TAB PO ONE (11:39)
[2020-11-21] MEDS: TYLENOL 325 MG TAB PO PRN (11:39)
[2020-11-21] MEDS: MELATONIN PO SCH (21:20)
[2020-11-22] MEDS: LOVENOX INJ 80 MG SYR SC SCH ×3 (02:19→22:01)
[2020-11-22] MEDS: THIAMINE HCL INJ IVP SCH ×3 (02:22→22:00)
[2020-11-22] MEDS: ASCORBIC ACID INJ MULTI-DOSE VIAL 1,500 MG in NS 100 ML IV 100 ML IV SCH ×4 (03:00→21:59)
[2020-11-22] MEDS: SOLU-Medrol 125 MG VIAL IVP SCH ×4 (03:00→22:00)
[2020-11-22 04:42] LABS: ABG BASE EXCESS 9.1 mmol/L (-2.0-2.0)
[2020-11-22 04:44] LABS: ABG ALLEN TEST POS; ABG HCO3 33.5 mmol/L (22-26)
[2020-11-22] MEDS: CYTOTEC PO SCH ×3 (06:17→22:00)
[2020-11-22 06:32] LABS: BASOPHILS % (AUTO) 0.1 % (0.2-1.0); HEMATOCRIT 26.9 % (42.0-54.0); LYMPHOCYTES # (AUTO) 0.1 X10^3/uL (1.3-2.9); LYMPHOCYTES % (AUTO) 1.9 % (21.0-51.0); MEAN CORPUSCULAR HEMOGLOBIN 31.6 pg (27.0-34.0); MEAN CORPUSCULAR HGB CONC 36.9 g/dL (33.0-35.0); MEAN CORPUSCULAR VOLUME 85.7 fL (80.0-100.0); MEAN PLATELET VOLUME 8.2 fL (7.4-11.0); MONOCYTES # (AUTO) 0.4 x10^3/uL (0.3-0.8); MONOCYTES % (AUTO) 5.8 % (0.0-13.0); NEUTROPHILS # (AUTO) 6.9 x10^3/uL (2.2-4.8); NEUTROPHILS % (AUTO) 92.2 % (42.0-75.0); PLATELET COUNT 263 X10^3/uL (150.0-450.0); RED BLOOD COUNT 3.14 X10^6/uL (4.7-6.0); RED CELL DISTRIBUTION WIDTH 13.3 % (11.6-16.5); WHITE BLOOD COUNT 7.4 X10^3/uL (3.6-10.0)
[2020-11-22 07:37] LABS: ALANINE AMINOTRANSFERASE 145 Units/L (12-78); ALBUMIN 2.1 g/dL (3.4-5.0); ALKALINE PHOSPHATASE 57 Units/L (46-116); ASPARTATE AMINO TRANSFERASE 73 Units/L (15-37); BLOOD UREA NITROGEN 23 mg/dL (7-18); CALCIUM 6.4 mg/dL (8.5-10.1); CARBON DIOXIDE 33.6 mmol/L (21-32); CHLORIDE 104 mmol/L (98-107); COR CA(FOR HYPOALB) 7.9 mg/dL (8.5-10.1); COR NA(FOR HYPERGLY) 142 mmol/L (136-145); CREATININE 1.16 mg/dL (0.70-1.30); SODIUM 141 mmol/L (136-145); eGFR NON BLACK RACES > 60 (>60)
--- NOTE | 2020-11-22 08:18 | RAD ---
HISTORYCOVID PNEUMONIASTUDYCHEST x-ray, 1 VIEWCOMPARISONNoneFINDINGSHeart is normal in size. Bilateral lung infiltrates are unchanged. No pneumothorax or pleural effusion is seen.IMPRESSIONLikely moderate bilateral COVID-19 pneumonia, similar to prior study.Electronically signed by: Buddy Marcano (Nov 22, 2020 08:16:54)
[2020-11-22] MEDS: PULMICORT NEB TX 0.5 MG NEB SCH ×2 (08:24→21:32)
[2020-11-22] MEDS: BROVANA IN SCH ×2 (08:24→21:32)
[2020-11-22] MEDS ORDERED: NS 1/2 1000 ML IV 1,000 ML IV ONE (08:34)
[2020-11-22] MEDS: LIPITOR TAB 80 MG PO SCH (08:43)
[2020-11-22] MEDS: ACTOS PO SCH (08:43)
[2020-11-22] MEDS: AVODART PO SCH (08:44)
[2020-11-22] MEDS: NS 1/2 1000 ML IV 1,000 ML IV SCH ×2 (08:44→17:47)
[2020-11-22] MEDS: GLUCOPHAGE XR 24-HR PO SCH ×2 (08:44→21:59)
[2020-11-22] MEDS: DIFLUCAN PO SCH (08:45)
[2020-11-22] MEDS: COREG TAB 12.5 MG PO SCH ×2 (08:45→21:59)
[2020-11-22] MEDS: VITAMIN A PO SCH (08:50)
[2020-11-22] MEDS: PEPCID TAB 40 MG PO SCH ×2 (09:00→22:01)
[2020-11-22] MEDS: PROTONIX INJ 40 MG VIAL IVP SCH ×2 (09:00→22:01)
[2020-11-22 09:02] LABS: PLATELET MORPHOLOGY COMMENT NORMAL (NORMAL)
[2020-11-22] MEDS: VITAMIN D3 125 mcg (5,000 UNITS) PO SCH (10:00)
[2020-11-22] MEDS: ZINC SULFATE PO SCH ×2 (10:00→22:00)
[2020-11-22] MEDS: MELATONIN PO SCH (22:01)
[2020-11-23] MEDS ORDERED: NS 1/2 1000 ML IV 1,000 ML IV ONE (02:05)
[2020-11-23] MEDS: ASCORBIC ACID INJ MULTI-DOSE VIAL 1,500 MG in NS 100 ML IV 100 ML IV SCH ×4 (02:11→21:08)
[2020-11-23] MEDS: NS 1/2 1000 ML IV 1,000 ML IV SCH ×2 (02:11→19:00)
[2020-11-23] MEDS: SOLU-Medrol 125 MG VIAL IVP SCH ×4 (02:11→21:10)
[2020-11-23] MEDS: CYTOTEC PO SCH ×3 (05:10→21:09)
[2020-11-23 06:40] LABS: BASOPHILS % (AUTO) 0.2 % (0.2-1.0); HEMATOCRIT 30.8 % (42.0-54.0); HEMOGLOBIN 11.1 g/dL (13.5-18.0); LYMPHOCYTES # (AUTO) 0.2 X10^3/uL (1.3-2.9); LYMPHOCYTES % (AUTO) 3.5 % (21.0-51.0); MEAN CORPUSCULAR HEMOGLOBIN 31.5 pg (27.0-34.0); MEAN CORPUSCULAR HGB CONC 36.2 g/dL (33.0-35.0); MEAN CORPUSCULAR VOLUME 87.1 fL (80.0-100.0); MEAN PLATELET VOLUME 7.8 fL (7.4-11.0); MONOCYTES # (AUTO) 0.3 x10^3/uL (0.3-0.8); MONOCYTES % (AUTO) 5.1 % (0.0-13.0); NEUTROPHILS # (AUTO) 4.8 x10^3/uL (2.2-4.8); NEUTROPHILS % (AUTO) 91.2 % (42.0-75.0); PLATELET COUNT 255 X10^3/uL (150.0-450.0); RED BLOOD COUNT 3.54 X10^6/uL (4.7-6.0); RED CELL DISTRIBUTION WIDTH 13.4 % (11.6-16.5); WHITE BLOOD COUNT 5.2 X10^3/uL (3.6-10.0)
[2020-11-23 06:48] LABS: ALANINE AMINOTRANSFERASE 129 Units/L (12-78); ALBUMIN 2.2 g/dL (3.4-5.0); ALKALINE PHOSPHATASE 61 Units/L (46-116); ASPARTATE AMINO TRANSFERASE 49 Units/L (15-37); BLOOD UREA NITROGEN 25 mg/dL (7-18); CALCIUM 6.7 mg/dL (8.5-10.1); CHLORIDE 103 mmol/L (98-107); COR CA(FOR HYPOALB) 8.1 mg/dL (8.5-10.1); COR NA(FOR HYPERGLY) 144 mmol/L (136-145); CREATININE 1.11 mg/dL (0.70-1.30); SODIUM 142 mmol/L (136-145); TOTAL PROTEIN 5.3 g/dL (6.4-8.2); eGFR NON BLACK RACES > 60 (>60)
[2020-11-23 08:35] LABS: BAND NEUTROPHILS % 1 % (0-10)
[2020-11-23 08:36] LABS: PLATELET MORPHOLOGY COMMENT NORMAL (NORMAL)
[2020-11-23] MEDS: ZINC SULFATE PO SCH ×2 (09:56→21:09)
[2020-11-23] MEDS: PROTONIX INJ 40 MG VIAL IVP SCH ×2 (09:56→21:10)
[2020-11-23] MEDS: COREG TAB 12.5 MG PO SCH ×2 (09:57→23:43)
[2020-11-23] MEDS: VITAMIN D3 125 mcg (5,000 UNITS) PO SCH (09:57)
[2020-11-23] MEDS: GLUCOPHAGE XR 24-HR PO SCH ×2 (09:57→21:10)
[2020-11-23] MEDS: PEPCID TAB 40 MG PO SCH ×2 (09:57→21:10)
[2020-11-23] MEDS: DIFLUCAN PO SCH (09:57)
[2020-11-23] MEDS: ACTOS PO SCH (09:58)
[2020-11-23] MEDS: AVODART PO SCH (09:58)
[2020-11-23] MEDS: LIPITOR TAB 80 MG PO SCH (09:58)
[2020-11-23] MEDS: VITAMIN A PO SCH (10:00)
[2020-11-23] MEDS: THIAMINE HCL INJ IVP SCH ×2 (10:00→21:09)
[2020-11-23] MEDS: LOVENOX INJ 80 MG SYR SC SCH ×2 (10:02→21:09)
[2020-11-23] MEDS: PULMICORT NEB TX 0.5 MG NEB SCH ×2 (10:35→20:15)
[2020-11-23] MEDS: BROVANA IN SCH ×2 (10:35→20:15)
[2020-11-23] MEDS: MELATONIN PO SCH (21:09)
[2020-11-24] MEDS: NS 1/2 1000 ML IV 1,000 ML IV SCH ×3 (01:00→18:01)
[2020-11-24] MEDS: ASCORBIC ACID INJ MULTI-DOSE VIAL 1,500 MG in NS 100 ML IV 100 ML IV SCH ×4 (02:23→20:50)
[2020-11-24] MEDS: SOLU-Medrol 125 MG VIAL IVP SCH ×4 (02:23→20:51)
[2020-11-24] MEDS: CYTOTEC PO SCH ×3 (05:41→22:09)
[2020-11-24] MEDS ORDERED: NS 100 ML IV 100 ML ONE ×2 (07:48→15:10)
[2020-11-24] MEDS: PEPCID TAB 40 MG PO SCH ×2 (08:28→20:51)
[2020-11-24] MEDS: ACTOS PO SCH (08:28)
[2020-11-24] MEDS: AVODART PO SCH (08:29)
[2020-11-24] MEDS: DIFLUCAN PO SCH (08:29)
[2020-11-24] MEDS: ZINC SULFATE PO SCH ×2 (08:30→20:52)
[2020-11-24] MEDS: VITAMIN A PO SCH (08:30)
[2020-11-24] MEDS: VITAMIN D3 125 mcg (5,000 UNITS) PO SCH (08:30)
[2020-11-24] MEDS: THIAMINE HCL INJ IVP SCH ×2 (08:31→20:51)
[2020-11-24] MEDS: PROTONIX INJ 40 MG VIAL IVP SCH ×2 (08:32→20:51)
[2020-11-24] MEDS: LOVENOX INJ 80 MG SYR SC SCH ×2 (08:32→20:50)
[2020-11-24] MEDS: COREG TAB 12.5 MG PO SCH ×2 (08:34→20:50)
[2020-11-24] MEDS: LIPITOR TAB 80 MG PO SCH (08:35)
[2020-11-24] MEDS: GLUCOPHAGE XR 24-HR PO SCH ×3 (08:35→22:09)
--- NOTE | 2020-11-24 08:50 | PCM.PROG ---
Progress Note Progress Note for Day of Date of Exam: 11/23/20 Subjective Subjective: Pt is a 70 year old male admitted for COVID-19 pneumonia with hypoxia. This morning patient is resting comfortably in bed. He is currently utilizing 5L nasal cannula supplemental oxygen. No acute events overnight. Labs/imaging: Wbc 5.2, Hgb 11.1, Plt 255, Na 142, K 3.5, Creatinine 1.11, Gluc ose 184. CXR: Likely moderate bilateral COVID-19 pneumonia, similar to prior study. Pt is currently on pneumonia protocol that includes: IVF 1/2 NS@125ml/h, Remdesivir, Solumedrol 80mg q8h, Lovenox 80mg BID, scheduled Bronchodilators, MATH+ protocol medications, immune supporting supplements, supplemental O2, I/S, Respiratory therapy consult, Pneumonia protocol. Plan to wean/titrate supplemental oxygen as tolerated. Will continue to monitor and follow up labs/imaging. Time spent on clinical assessment, reviewing labs and imaging, decision making, and documentation greater than 45 minutes. Past Medical Family Social History Past Med/Fam/Surg Hx: No changes since H&P Allergies: Allergies Penicillins Allergy (Verified 11/16/20 19:18) Review of Systems ROS: No change since H&P Vital Signs and I&O's Vital Signs: Temperature 97.8 F Pulse Rate [Left Brachial] 64 Pulse Rate 69 Respiratory Rate 20 Blood Pressure [Right Arm] 122/62 Blood Pressure [Left Arm] 137/62 Blood Pressure 98/57 O2 Sat by Pulse Oximetry 90 Intake and Output: Intake & Output 11/21/20 11/22/20 11/23/20 11/24/20 23:59 23:59 23:59 23:59 Intake Total 2886 / 2886 3385 / 3385 2427 / 2427 644 / 644 Output Total 2215 / 2215 1999 / 1999 1020 / 1020 700 / 700 Balance 671 / 671 1385 / 1385 1407 / 1407 -56 / -56 Physical Exam Oriented: Normal Eyes: Normal Ear: Normal Nose: Normal Respiratory: Diminished and Rales Cardiovascular: Normal : Normal Auscultation: Bowel Sounds: Normal Palpation: Normal Tenderness: Normal Skin: Normal Musculoskeletal: Normal Psychiatric: Normal Mood Description: Calm Speech Pattern: Clear and Appropriate Laboratory and Diagnostics Result Diagrams: 11/23/20 06:19 11/23/20 06:19 Labs: Laboratory WBC 5.2 X10^3/uL (3.6-10.0) 11/23/20 06:19 RBC 3.54 X10^6/uL (4.7-6.0) L 11/23/20 06:19 Hgb 11.1 g/dL (13.5-18.0) L 11/23/20 06:19 Hct 30.8 % (42.0-54.0) L 11/23/20 06:19 MCV 87.1 fL (80.0-100.0) 11/23/20 06:19 MCH 31.5 pg (27.0-34.0) 11/23/20 06:19 MCHC 36.2 g/dL (33.0-35.0) H 11/23/20 06:19 RDW 13.4 % (11.6-16.5) 11/23/20 06:19 Plt Count 255 X10^3/uL (150.0-450.0) 11/23/20 06:19 Plt Count Comment Adequate (ADEQUATE) 11/23/20 06:19 MPV 7.8 fL (7.4-11.0) 11/23/20 06:19 Neut % (Auto) 91.2 % (42.0-75.0) H 11/23/20 06:19 Lymph % (Auto) 3.5 % (21.0-51.0) L 11/23/20 06:19 [place] % (Auto) 5.1 % (0.0-13.0) 11/23/20 06:19 Eos % (Auto) 0.0 % (0.9-2.9) L 11/23/20 06:19 Baso % (Auto) 0.2 % (0.2-1.0) 11/23/20 06:19 Neut # (Auto) 4.8 x10^3/uL (2.2-4.8) 11/23/20 06:19 Lymph # (Auto) 0.2 X10^3/uL (1.3-2.9) L 11/23/20 06:19 [place] # (Auto) 0.3 x10^3/uL (0.3-0.8) 11/23/20 06:19 Eos # (Auto) 0.0 x10^3/uL (0.0-0.2) 11/23/20 06:19 Baso # (Auto) 0.0 X10^3/uL (0.0-0.1) 11/23/20 06:19 Absolute Nucleated RBC 0.2 /100WBC 11/23/20 06:19 Total Counted 100 11/23/20 06:19 Neutrophils % (Manual) 91 % (39-76) H 11/23/20 06:19 Band Neutrophils % 1 % (0-10) 11/23/20 06:19 Lymphocytes % (Manual) 5 % (13-43) L 11/23/20 06:19 Monocytes % (Manual) 3 % (4-9) L 11/23/20 06:19 Plt Morphology Comment Normal (NORMAL) 11/23/20 06:19 RBC Morphology Normal (NORMAL) 11/23/20 06:19 APTT 32.7 SECONDS (22.9-36.5) 11/23/20 15:25 PTT Comment - 11/23/20 15:25 D-Dimer 1.28 ug/ml (0.0-0.57) H* 11/16/20 20:25 Sample Site Lrad 11/22/20 04:35 ABG pH 7.490 (7.35-7.45) H 11/22/20 04:35 ABG pCO2 44.0 mmHg (35.0-45.0) 11/22/20 04:35 ABG pO2 47.0 mmHg (80.0-100.0) L* 11/22/20 04:35 ABG HCO3 33.5 mmol/L (22-26) H* 11/22/20 04:35 ABG O2 Saturation 86.0 % (90-100) L 11/22/20 04:35 ABG Base Excess 9.1 mmol/L (-2.0-2.0) H 11/22/20 04:35 Dmitry Test Pos 11/22/20 04:35 A-a Gradient 126.0 mmHg 11/22/20 04:35 FiO2 32.0 11/22/20 04:35 Blood Gas Comments Princess well ah 11/22/20 04:35 Sodium 142 mmol/L (136-145) 11/23/20 06:19 Corrected Sodium 144 mmol/L (136-145) 11/23/20 06:19 Potassium 3.5 mmol/L (3.5-5.1) 11/23/20 06:19 Chloride 103 mmol/L (98-107) 11/23/20 06:19 Carbon Dioxide 34.0 mmol/L (21-32) H 11/23/20 06:19 BUN 25 mg/dL (7-18) H 11/23/20 06:19 Creatinine 1.11 mg/dL (0.70-1.30) 11/23/20 06:19 Est GFR (MDRD) Af Amer > 60 (>60) 11/23/20 06:19 Est GFR (MDRD) Non-Af > 60 (>60) 11/23/20 06:19 Glucose 184 mg/dL (65-99) H 11/23/20 06:19 Calcium 6.7 mg/dL (8.5-10.1) L 11/23/20 06:19 Corrected Calcium 8.1 mg/dL (8.5-10.1) L 11/23/20 06:19 Magnesium 2.5 mg/dL (1.7-2.9) 11/23/20 06:19 Ferritin 1723 ng/mL (26-388) H 11/16/20 20:25 Total Bilirubin 0.60 mg/dL (0.2-1.0) 11/23/20 06:19 AST 49 Units/L (15-37) H 11/23/20 06:19 ALT 129 Units/L (12-78) H 11/23/20 06:19 Alkaline Phosphatase 61 Units/L (46-116) 11/23/20 06:19 Creatine Kinase 286 Units/L (39-308) 11/16/20 20:25 CK-MB (CK-2) < 1.0 ng/mL (0-4.0) 11/16/20 20:25 CK/CKMB % Calc 0.4 % (<4) 11/16/20 20:25 Troponin I < 0.02 ng/mL (0-1.5) 11/16/20 20:25 C-Reactive Protein 191.10 mg/L (0-3.0) H 11/16/20 20:25 B-Natriuretic Peptide 26.2 pg/mL (0-79) 11/16/20 20:25 Total Protein 5.3 g/dL (6.4-8.2) L 11/23/20 06:19 Albumin 2.2 g/dL (3.4-5.0) L 11/23/20 06:19 Globulin 3.1 g/dL (2.5-4.5) 11/23/20 06:19 Albumin/Globulin Ratio 0.7 Ratio (1.1-2.1) L 11/23/20 06:19 SARS-CoV-2 (PCR) Positive (NEGATIVE) A 11/16/20 20:44 Influenza Type A (PCR) Negative (NEGATIVE) 11/16/20 20:44 Influenza Type B (PCR) Negative (NEGATIVE) 11/16/20 20:44 RSV (PCR) Negative (NEGATIVE) 11/16/20 20:44 Plan (1) Pneumonia due to COVID-19 virus: Status: Acute Plan: -pneumonia protocol
[2020-11-24] MEDS: BROVANA IN SCH ×2 (09:35→20:30)
[2020-11-24] MEDS: PULMICORT NEB TX 0.5 MG NEB SCH ×2 (09:35→20:30)
[2020-11-24 09:52] LABS: BASOPHILS % (AUTO) 0.5 % (0.2-1.0); EOSINOPHILS % (AUTO) 0.4 % (0.9-2.9); HEMATOCRIT 30.8 % (42.0-54.0); HEMOGLOBIN 11.1 g/dL (13.5-18.0); LYMPHOCYTES # (AUTO) 0.2 X10^3/uL (1.3-2.9); LYMPHOCYTES % (AUTO) 4.9 % (21.0-51.0); MEAN CORPUSCULAR HEMOGLOBIN 31.3 pg (27.0-34.0); MEAN CORPUSCULAR VOLUME 86.8 fL (80.0-100.0); MEAN PLATELET VOLUME 7.9 fL (7.4-11.0); MONOCYTES # (AUTO) 0.3 x10^3/uL (0.3-0.8); MONOCYTES % (AUTO) 5.1 % (0.0-13.0); NEUTROPHILS # (AUTO) 4.5 x10^3/uL (2.2-4.8); NEUTROPHILS % (AUTO) 89.1 % (42.0-75.0); PLATELET COUNT 248 X10^3/uL (150.0-450.0); RED BLOOD COUNT 3.55 X10^6/uL (4.7-6.0); RED CELL DISTRIBUTION WIDTH 13.4 % (11.6-16.5)
[2020-11-24 10:06] LABS: ALANINE AMINOTRANSFERASE 103 Units/L (12-78); ALKALINE PHOSPHATASE 51 Units/L (46-116); ASPARTATE AMINO TRANSFERASE 34 Units/L (15-37); BLOOD UREA NITROGEN 28 mg/dL (7-18); CALCIUM 6.5 mg/dL (8.5-10.1); CARBON DIOXIDE 35.2 mmol/L (21-32); CHLORIDE 105 mmol/L (98-107); COR CA(FOR HYPOALB) 8.1 mg/dL (8.5-10.1); COR NA(FOR HYPERGLY) 145 mmol/L (136-145); SODIUM 142 mmol/L (136-145); TOTAL PROTEIN 4.9 g/dL (6.4-8.2); eGFR NON BLACK RACES 58 (>60)
[2020-11-24] MEDS ORDERED: MICRO K EXTEN CAP 10 MEQ PO PRN (10:30)
[2020-11-24] MEDS ORDERED: POTASSIUM CHLORIDE LIQ 20 MEQ UDC PO PRN (10:30)
[2020-11-24] MEDS ORDERED: POTASSIUM CHL 60 MEQ/NS 0.45% 500 ML IV PRN (10:30)
[2020-11-24] MEDS ORDERED: K-RIDER 10 MEQ/NS 100 ML 10 MEQ/100 ML BAG IV PRN (10:30)
[2020-11-24] MEDS ORDERED: POTASSIUM CHL 40 MEQ/NS 0.45% 500 ML IV PRN (10:30)
[2020-11-24] MEDS ORDERED: KLOR-CON PO PRN (10:30)
[2020-11-24] MEDS: K-DUR TAB 20 MEQ PO PRN ×2 (12:12→22:45)
[2020-11-24] MEDS: MELATONIN PO SCH (20:51)
--- NOTE | 2020-11-25 00:27 | PCM.PROG ---
Progress Note Progress Note for Day of Date of Exam: 11/24/20 Subjective Subjective: Pt is a 70 year old male admitted for COVID-19 pneumonia with hypoxia. He is sitting up in bed this morning. No acute events overnight. He is currently utilizing 5L nasal cannula supplemental oxygen. Labs/imaging: Wbc 5.0, Hgb 11.1, Plt 248, Na 142, K 3.2, Creatinine 1.30, Glucose 220. CRP 7.2. CXR was obtained and results are pending. Pt is currently on pneumonia protocol that includes: IVF 1/2 NS@125ml/h, Remdesivir, Solumedrol 80mg q8h, Lovenox 80mg BID, scheduled Bronchodilators, MATH+ protocol medications, immune supporting supplements, supplemental O2, I/S, Respiratory therapy consult, Pneumonia protocol. Plan to wean/titrate supplemental oxygen as tolerated. Hopefully can continue to wean down and then can consider home oxygen when oxygen requirement has stabilized. Will continue to monitor and follow up labs/imaging. Time spent on clinical assessment, reviewing labs and imaging, decision making, and documentation greater than 45 minutes. Past Medical Family Social History Past Med/Fam/Surg Hx: No changes since H&P Allergies: Allergies Penicillins Allergy (Verified 11/16/20 19:18) Review of Systems ROS: No change since H&P Vital Signs and I&O's Vital Signs: Temperature 97.5 F Pulse Rate [Left Brachial] 71 Pulse Rate 70 Respiratory Rate 20 Blood Pressure [Right Arm] 112/61 Blood Pressure [Left Arm] 137/62 Blood Pressure 98/57 O2 Sat by Pulse Oximetry 90 Intake and Output: Intake & Output 11/22/20 11/23/20 11/24/20 11/25/20 23:59 23:59 23:59 23:59 Intake Total 3385 / 3385 2427 / 2427 1957 / 1957 480 / 480 Output Total 1999 / 1999 1020 / 1020 1450 / 1450 350 / 350 Balance 1385 / 1385 1407 / 1407 507 / 507 130 / 130 Physical Exam Oriented: Normal Eyes: Normal Ear: Normal Nose: Normal Respiratory: Diminished and Rales Cardiovascular: Normal : Normal Auscultation: Bowel Sounds: Normal Tenderness: Normal Skin: Normal Musculoskeletal: Normal Psychiatric: Normal Mood Description: Calm Speech Pattern: Clear and Appropriate Laboratory and Diagnostics Result Diagrams: 11/24/20 09:22 11/24/20 18:40 Labs: Laboratory WBC 5.0 X10^3/uL (3.6-10.0) 11/24/20 09: RBC 3.55 X10^6/uL (4.7-6.0) L 11/24/20 09:22 Hgb 11.1 g/dL (13.5-18.0) L 11/24/20 09: Hct 30.8 % (42.0-54.0) L 11/24/20 09:22 MCV 86.8 fL (80.0-100.0) 11/24/20 09: MCH 31.3 pg (27.0-34.0) 11/24/20 09: MCHC 36.0 g/dL (33.0-35.0) H 11/24/20 09: RDW 13.4 % (11.6-16.5) 11/24/20 09: Plt Count 248 X10^3/uL (150.0-450.0) 11/24/20 09: Plt Count Comment Adequate (ADEQUATE) 11/23/20 06:19 MPV 7.9 fL (7.4-11.0) 11/24/20 09: Neut % (Auto) 89.1 % (42.0-75.0) H 11/24/20 09: Lymph % (Auto) 4.9 % (21.0-51.0) L 11/24/20 09: [place] % (Auto) 5.1 % (0.0-13.0) 11/24/20 09: Eos % (Auto) 0.4 % (0.9-2.9) L 11/24/20 09: Baso % (Auto) 0.5 % (0.2-1.0) 11/24/20 09: Neut # (Auto) 4.5 x10^3/uL (2.2-4.8) 11/24/20 09: Lymph # (Auto) 0.2 X10^3/uL (1.3-2.9) L 11/24/20 09:22 [place] # (Auto) 0.3 x10^3/uL (0.3-0.8) 11/24/20 09:22 Eos # (Auto) 0.0 x10^3/uL (0.0-0.2) 11/24/20 09:22 Baso # (Auto) 0.0 X10^3/uL (0.0-0.1) 11/24/20 09:22 Absolute Nucleated RBC 0.1 /100WBC 11/24/20 09:22 Total Counted 100 11/23/20 06:19 Neutrophils % (Manual) 91 % (39-76) H 11/23/20 06:19 Band Neutrophils % 1 % (0-10) 11/23/20 06:19 Lymphocytes % (Manual) 5 % (13-43) L 11/23/20 06:19 Monocytes % (Manual) 3 % (4-9) L 11/23/20 06:19 Plt Morphology Comment Normal (NORMAL) 11/23/20 06:19 RBC Morphology Normal (NORMAL) 11/23/20 06:19 APTT 32.7 SECONDS (22.9-36.5) 11/23/20 15:25 PTT Comment - 11/23/20 15:25 D-Dimer 1.28 ug/ml (0.0-0.57) H* 11/16/20 20:25 Sample Site Lrad 11/22/20 04:35 ABG pH 7.490 (7.35-7.45) H 11/22/20 04:35 ABG pCO2 44.0 mmHg (35.0-45.0) 11/22/20 04:35 ABG pO2 47.0 mmHg (80.0-100.0) L* 11/22/20 04:35 ABG HCO3 33.5 mmol/L (22-26) H* 11/22/20 04:35 ABG O2 Saturation 86.0 % (90-100) L 11/22/20 04:35 ABG Base Excess 9.1 mmol/L (-2.0-2.0) H 11/22/20 04:35 Dmitry Test Pos 11/22/20 04:35 A-a Gradient 126.0 mmHg 11/22/20 04:35 FiO2 32.0 11/22/20 04:35 Blood Gas Comments Princess well ah 11/22/20 04:35 Sodium 142 mmol/L (136-145) 11/24/20 09:22 Corrected Sodium 145 mmol/L (136-145) 11/24/20 09:22 Potassium 3.7 mmol/L (3.5-5.1) 11/24/20 18:40 Chloride 105 mmol/L (98-107) 11/24/20 09:22 Carbon Dioxide 35.2 mmol/L (21-32) H 11/24/20 09:22 BUN 28 mg/dL (7-18) H 11/24/20 09:22 Creatinine 1.30 mg/dL (0.70-1.30) 11/24/20 09:22 Est GFR (MDRD) Af Amer > 60 (>60) 11/24/20 09:22 Est GFR (MDRD) Non-Af 58 (>60) L 11/24/20 09:22 Glucose 220 mg/dL (65-99) H 11/24/20 09:22 Calcium 6.5 mg/dL (8.5-10.1) L 11/24/20 09:22 Corrected Calcium 8.1 mg/dL (8.5-10.1) L 11/24/20 09:22 Magnesium 2.5 mg/dL (1.7-2.9) 11/23/20 06:19 Ferritin 1723 ng/mL (26-388) H 11/16/20 20:25 Total Bilirubin 0.50 mg/dL (0.2-1.0) 11/24/20 09:22 AST 34 Units/L (15-37) 11/24/20 09:22 ALT 103 Units/L (12-78) H 11/24/20 09:22 Alkaline Phosphatase 51 Units/L (46-116) 11/24/20 09:22 Creatine Kinase 286 Units/L (39-308) 11/16/20 20:25 CK-MB (CK-2) < 1.0 ng/mL (0-4.0) 11/16/20 20:25 CK/CKMB % Calc 0.4 % (<4) 11/16/20 20:25 Troponin I < 0.02 ng/mL (0-1.5) 11/16/20 20:25 C-Reactive Protein 7.20 mg/L (0-3.0) H 11/24/20 09:22 B-Natriuretic Peptide 26.2 pg/mL (0-79) 11/16/20 20:25 Total Protein 4.9 g/dL (6.4-8.2) L 11/24/20 09:22 Albumin 2.0 g/dL (3.4-5.0) L 11/24/20 09:22 Globulin 2.9 g/dL (2.5-4.5) 11/24/20 09:22 Albumin/Globulin Ratio 0.7 Ratio (1.1-2.1) L 11/24/20 09:22 SARS-CoV-2 (PCR) Positive (NEGATIVE) A 11/16/20 20:44 Influenza Type A (PCR) Negative (NEGATIVE) 11/16/20 20:44 Influenza Type B (PCR) Negative (NEGATIVE) 11/16/20 20:44 RSV (PCR) Negative (NEGATIVE) 11/16/20 20:44 Plan (1) Pneumonia due to COVID-19 virus: Status: Acute Plan: -pneumonia protocol
[2020-11-25] MEDS: NS 1/2 1000 ML IV 1,000 ML IV SCH ×3 (01:16→18:25)
[2020-11-25] MEDS ORDERED: NS 1/2 1000 ML IV 1,000 ML IV ONE ×3 (02:19→23:18)
[2020-11-25] MEDS: SOLU-Medrol 125 MG VIAL IVP SCH ×4 (02:31→20:38)
[2020-11-25] MEDS: ASCORBIC ACID INJ MULTI-DOSE VIAL 1,500 MG in NS 100 ML IV 100 ML IV SCH ×4 (02:31→20:37)
[2020-11-25 05:27] LABS: BASOPHILS % (AUTO) 0.3 % (0.2-1.0); HEMATOCRIT 28.5 % (42.0-54.0); HEMOGLOBIN 10.5 g/dL (13.5-18.0); LYMPHOCYTES # (AUTO) 0.2 X10^3/uL (1.3-2.9); LYMPHOCYTES % (AUTO) 3.4 % (21.0-51.0); MEAN CORPUSCULAR HEMOGLOBIN 31.7 pg (27.0-34.0); MEAN CORPUSCULAR HGB CONC 36.8 g/dL (33.0-35.0); MEAN PLATELET VOLUME 7.7 fL (7.4-11.0); MONOCYTES # (AUTO) 0.2 x10^3/uL (0.3-0.8); MONOCYTES % (AUTO) 4.6 % (0.0-13.0); NEUTROPHILS # (AUTO) 4.6 x10^3/uL (2.2-4.8); NEUTROPHILS % (AUTO) 91.7 % (42.0-75.0); PLATELET COUNT 234 X10^3/uL (150.0-450.0); RED BLOOD COUNT 3.32 X10^6/uL (4.7-6.0); RED CELL DISTRIBUTION WIDTH 13.4 % (11.6-16.5)
--- NOTE | 2020-11-25 05:44 | RAD ---
HISTORYFollow up pneumoniaSTUDYAP [id number]/03/2021FINDINGSStable heart size and contour, borderline enlarged. Persistent bilateral areas of peripheral pulmonary consolidation with slight apparent progression. No additional areas of pulmonary involvement identified. No definite pleural fluid or extrapulmonary air collection identified.IMPRESSIONPersistent bilateral pneumonia with slight apparent interval increase since 2 days prior.Electronically signed by: MIKE LION (Nov 25, 2020 05:43:11)
[2020-11-25 05:47] LABS: ALANINE AMINOTRANSFERASE 80 Units/L (12-78); ALKALINE PHOSPHATASE 48 Units/L (46-116); ASPARTATE AMINO TRANSFERASE 21 Units/L (15-37); BLOOD UREA NITROGEN 26 mg/dL (7-18); CALCIUM 6.4 mg/dL (8.5-10.1); CARBON DIOXIDE 31.1 mmol/L (21-32); CHLORIDE 107 mmol/L (98-107); COR NA(FOR HYPERGLY) 144 mmol/L (136-145); CREATININE 1.09 mg/dL (0.70-1.30); SODIUM 141 mmol/L (136-145); TOTAL PROTEIN 4.7 g/dL (6.4-8.2); eGFR NON BLACK RACES > 60 (>60)
[2020-11-25] MEDS: CYTOTEC PO SCH ×3 (05:55→21:51)
[2020-11-25 06:20] LABS: PLATELET MORPHOLOGY COMMENT NORMAL (NORMAL)
[2020-11-25] MEDS: LOVENOX INJ 80 MG SYR SC SCH ×2 (08:35→20:37)
[2020-11-25] MEDS: LIPITOR TAB 80 MG PO SCH (08:37)
[2020-11-25] MEDS: ACTOS PO SCH (08:37)
[2020-11-25] MEDS: ZINC SULFATE PO SCH ×2 (08:38→20:38)
[2020-11-25] MEDS: GLUCOPHAGE XR 24-HR PO SCH ×2 (08:38→20:37)
[2020-11-25] MEDS: AVODART PO SCH (08:39)
[2020-11-25] MEDS: PEPCID TAB 40 MG PO SCH ×2 (08:39→20:38)
[2020-11-25] MEDS: DIFLUCAN PO SCH (08:40)
[2020-11-25] MEDS: VITAMIN A PO SCH (08:40)
[2020-11-25] MEDS: COREG TAB 12.5 MG PO SCH ×2 (08:40→20:39)
[2020-11-25] MEDS: PROTONIX INJ 40 MG VIAL IVP SCH ×2 (08:41→20:39)
[2020-11-25] MEDS: THIAMINE HCL INJ IVP SCH ×2 (08:41→20:38)
[2020-11-25] MEDS: VITAMIN D3 125 mcg (5,000 UNITS) PO SCH (08:41)
[2020-11-25] MEDS: K-DUR TAB 20 MEQ PO PRN ×2 (09:05→23:10)
[2020-11-25] MEDS: BROVANA IN SCH ×2 (09:15→20:45)
[2020-11-25] MEDS: PULMICORT NEB TX 0.5 MG NEB SCH ×2 (09:15→20:45)
[2020-11-25] MEDS: TYLENOL 325 MG TAB PO PRN ×3 (11:00→18:23)
--- NOTE | 2020-11-25 11:09 | RAD ---
HISTORYFollow up pneumoniaSTUDYPortable AP [id number]/05/2021FINDINGSThere is no change in the heart size or contour. Large bilateral areas of airspace consolidation are again noted, similar in the right lung and slightly increasing in the left base. No pneumothorax or pleural fluid seen.IMPRESSIONPersistent bilateral pneumonia with slight interval progression in the left lower lobe.Electronically signed by: MIKE LION (Nov 25, 2020 11:07:35)
[2020-11-25] MEDS ORDERED: NS 100 ML IV 200 ML ONE (20:09)
[2020-11-25] MEDS: MELATONIN PO SCH (20:38)
--- NOTE | 2020-11-25 23:57 | PCM.PROG ---
Progress Note Progress Note for Day of Date of Exam: 11/25/20 Subjective Subjective: Pt is a 70 year old male admitted for COVID-19 pneumonia with hypoxia. He is resting comfortably in bed thi smorning. No acute events overnight. He is currently utilizing 5L nasal cannula supplemental oxygen. Labs/imaging: Wbc 5.0, Hgb 10.5, Plt 234, Na 141, K 3.6, Creatinine 1.09, Glucose 234. CXR was obtained that revealed: Persistent bilateral pneumonia with slight interval progression in the left lower lobe. Pt is currently on pneumonia protocol that includes: IVF 1/2 NS@125ml/h, Remdesivir, Solumedrol 80mg q8h, Lovenox 80mg BID, scheduled Bronchodilators, MATH+ protocol medications, immune supporting supplements, supplemental O2, I/S, Respiratory therapy consult, Pneumonia protocol. Plan to wean/titrate supplemental oxygen as tolerated. Can continue to wean down and then can consider home oxygen when oxygen requirement has stabilized. Will continue to monitor and follow up labs/imaging. Time spent on clinical assessment, reviewing labs and imaging, decision making, and documentation greater than 45 minutes. Past Medical Family Social History Past Med/Fam/Surg Hx: No changes since H&P Allergies: Allergies Penicillins Allergy (Verified 11/16/20 19:18) Review of Systems ROS: No change since H&P Vital Signs and I&O's Vital Signs: Temperature 98.4 F Pulse Rate [Left Brachial] 67 Pulse Rate 70 Respiratory Rate 20 Blood Pressure [Right Arm] 118/61 Blood Pressure [Left Arm] 137/62 Blood Pressure 98/57 O2 Sat by Pulse Oximetry 89 Intake and Output: Intake & Output 11/22/20 11/23/20 11/24/20 11/25/20 23:59 23:59 23:59 23:59 Intake Total 3385 / 3385 2427 / 2427 1956 / 1956 3170 / 3170 Output Total 1999 1020 / 1020 1450 / 1450 925 / 925 Balance 1385 / 1385 1407 / 1407 507 / 507 2245 / 2245 Physical Exam Oriented: Normal Eyes: Normal Ear: Normal Nose: Normal Respiratory: Diminished and Rales Cardiovascular: Normal : Normal Auscultation: Bowel Sounds: Normal Tenderness: Normal Skin: Normal Musculoskeletal: Normal Psychiatric: Normal Mood Description: Calm Speech Pattern: Clear and Appropriate Laboratory and Diagnostics Result Diagrams: 11/25/20 05:00 11/25/20 05:00 Labs: Laboratory WBC 5.0 X10^3/uL (3.6-10.0) 11/25/20 05:00 RBC 3.32 X10^6/uL (4.7-6.0) L 11/25/20 05:00 Hgb 10.5 g/dL (13.5-18.0) L 11/25/20 05:00 Hct 28.5 % (42.0-54.0) L 11/25/20 05:00 MCV 86.0 fL (80.0-100.0) 11/25/20 05:00 MCH 31.7 pg (27.0-34.0) 11/25/20 05:00 MCHC 36.8 g/dL (33.0-35.0) H 11/25/20 05:00 RDW 13.4 % (11.6-16.5) 11/25/20 05:00 Plt Count 234 X10^3/uL (150.0-450.0) 11/25/20 05:00 Plt Count Comment Adequate (ADEQUATE) 11/25/20 05:00 MPV 7.7 fL (7.4-11.0) 11/25/20 05:00 Neut % (Auto) 91.7 % (42.0-75.0) H 11/25/20 05:00 Lymph % (Auto) 3.4 % (21.0-51.0) L 11/25/20 05:00 Riley % (Auto) 4.6 % (0.0-13.0) 11/25/20 05:00 Eos % (Auto) 0.0 % (0.9-2.9) L 11/25/20 05:00 Baso % (Auto) 0.3 % (0.2-1.0) 11/25/20 05:00 Neut # (Auto) 4.6 x10^3/uL (2.2-4.8) 11/25/20 05:00 Lymph # (Auto) 0.2 X10^3/uL (1.3-2.9) L 11/25/20 05:00 Riley # (Auto) 0.2 x10^3/uL (0.3-0.8) L 11/25/20 05:00 Eos # (Auto) 0.0 x10^3/uL (0.0-0.2) 11/25/20 05:00 Baso # (Auto) 0.0 X10^3/uL (0.0-0.1) 11/25/20 05:00 Absolute Nucleated RBC 0.1 /100WBC 11/25/20 05:00 Total Counted 100 11/25/20 05:00 Neutrophils % (Manual) 98 % (39-76) H 11/25/20 05:00 Band Neutrophils % 1 % (0-10) 11/23/20 06:19 Lymphocytes % (Manual) 2 % (13-43) L 11/25/20 05:00 Monocytes % (Manual) 3 % (4-9) L 11/23/20 06:19 Plt Morphology Comment Normal (NORMAL) 11/25/20 05:00 RBC Morphology Normal (NORMAL) 11/25/20 05:00 APTT 32.7 SECONDS (22.9-36.5) 11/23/20 15:25 PTT Comment - 11/23/20 15:25 D-Dimer 1.28 ug/ml (0.0-0.57) H* 11/16/20 20:25 Sample Site Lrad 11/22/20 04:35 ABG pH 7.490 (7.35-7.45) H 11/22/20 04:35 ABG pCO2 44.0 mmHg (35.0-45.0) 11/22/20 04:35 ABG pO2 47.0 mmHg (80.0-100.0) L* 11/22/20 04:35 ABG HCO3 33.5 mmol/L (22-26) H* 11/22/20 04:35 ABG O2 Saturation 86.0 % (90-100) L 11/22/20 04:35 ABG Base Excess 9.1 mmol/L (-2.0-2.0) H 11/22/20 04:35 Dmitry Test Pos 11/22/20 04:35 A-a Gradient 126.0 mmHg 11/22/20 04:35 FiO2 32.0 11/22/20 04:35 Blood Gas Comments Princess well ah 11/22/20 04:35 Sodium 141 mmol/L (136-145) 11/25/20 05:00 Corrected Sodium 144 mmol/L (136-145) 11/25/20 05:00 Potassium 3.6 mmol/L (3.5-5.1) 11/25/20 05:00 Chloride 107 mmol/L (98-107) 11/25/20 05:00 Carbon Dioxide 31.1 mmol/L (21-32) 11/25/20 05:00 BUN 26 mg/dL (7-18) H 11/25/20 05:00 Creatinine 1.09 mg/dL (0.70-1.30) 11/25/20 05:00 Est GFR (MDRD) Af Amer > 60 (>60) 11/25/20 05:00 Est GFR (MDRD) Non-Af > 60 (>60) 11/25/20 05:00 Glucose 234 mg/dL (65-99) H 11/25/20 05:00 Calcium 6.4 mg/dL (8.5-10.1) L 11/25/20 05:00 Corrected Calcium 8.0 mg/dL (8.5-10.1) L 11/25/20 05:00 Magnesium 2.5 mg/dL (1.7-2.9) 11/23/20 06:19 Ferritin 1723 ng/mL (26-388) H 11/16/20 20:25 Total Bilirubin 0.40 mg/dL (0.2-1.0) 11/25/20 05:00 AST 21 Units/L (15-37) 11/25/20 05:00 ALT 80 Units/L (12-78) H 11/25/20 05:00 Alkaline Phosphatase 48 Units/L (46-116) 11/25/20 05:00 Creatine Kinase 286 Units/L (39-308) 11/16/20 20:25 CK-MB (CK-2) < 1.0 ng/mL (0-4.0) 11/16/20 20:25 CK/CKMB % Calc 0.4 % (<4) 11/16/20 20:25 Troponin I < 0.02 ng/mL (0-1.5) 11/16/20 20:25 C-Reactive Protein 7.20 mg/L (0-3.0) H 11/24/20 09:22 B-Natriuretic Peptide 26.2 pg/mL (0-79) 11/16/20 20:25 Total Protein 4.7 g/dL (6.4-8.2) L 11/25/20 05:00 Albumin 2.0 g/dL (3.4-5.0) L 11/25/20 05:00 Globulin 2.7 g/dL (2.5-4.5) 11/25/20 05:00 Albumin/Globulin Ratio 0.7 Ratio (1.1-2.1) L 11/25/20 05:00 SARS-CoV-2 (PCR) Positive (NEGATIVE) A 11/16/20 20:44 Influenza Type A (PCR) Negative (NEGATIVE) 11/16/20 20:44 Influenza Type B (PCR) Negative (NEGATIVE) 11/16/20 20:44 RSV (PCR) Negative (NEGATIVE) 11/16/20 20:44 Plan (1) Pneumonia due to COVID-19 virus: Status: Acute Plan: -pneumonia protocol
[2020-11-26] MEDS: NS 1/2 1000 ML IV 1,000 ML IV SCH ×3 (01:21→21:09)
[2020-11-26] MEDS ORDERED: NS 100 ML IV 200 ML ONE (01:26)
[2020-11-26] MEDS: SOLU-Medrol 125 MG VIAL IVP SCH (03:42)
[2020-11-26] MEDS: ASCORBIC ACID INJ MULTI-DOSE VIAL 1,500 MG in NS 100 ML IV 100 ML IV SCH ×4 (03:42→21:09)
[2020-11-26] MEDS: CYTOTEC PO SCH ×3 (05:30→21:12)
[2020-11-26 06:21] LABS: ABG BASE EXCESS 8.3 mmol/L (-2.0-2.0)
[2020-11-26 06:22] LABS: ABG ALLEN TEST POS; ABG HCO3 31.8 mmol/L (22-26)
[2020-11-26 06:25] LABS: BASOPHILS % (AUTO) 0.3 % (0.2-1.0); HEMATOCRIT 30.1 % (42.0-54.0); HEMOGLOBIN 11.1 g/dL (13.5-18.0); LYMPHOCYTES # (AUTO) 0.2 X10^3/uL (1.3-2.9); MEAN CORPUSCULAR HGB CONC 36.7 g/dL (33.0-35.0); MEAN CORPUSCULAR VOLUME 87.3 fL (80.0-100.0); MEAN PLATELET VOLUME 7.6 fL (7.4-11.0); MONOCYTES # (AUTO) 0.3 x10^3/uL (0.3-0.8); MONOCYTES % (AUTO) 3.7 % (0.0-13.0); NEUTROPHILS # (AUTO) 6.6 x10^3/uL (2.2-4.8); PLATELET COUNT 209 X10^3/uL (150.0-450.0); RED BLOOD COUNT 3.45 X10^6/uL (4.7-6.0); RED CELL DISTRIBUTION WIDTH 13.5 % (11.6-16.5); WHITE BLOOD COUNT 7.1 X10^3/uL (3.6-10.0)
[2020-11-26 06:30] LABS: ALANINE AMINOTRANSFERASE 75 Units/L (12-78); ALBUMIN 2.1 g/dL (3.4-5.0); ALKALINE PHOSPHATASE 46 Units/L (46-116); ASPARTATE AMINO TRANSFERASE 20 Units/L (15-37); BLOOD UREA NITROGEN 25 mg/dL (7-18); CALCIUM 6.5 mg/dL (8.5-10.1); CARBON DIOXIDE 31.3 mmol/L (21-32); CHLORIDE 103 mmol/L (98-107); COR NA(FOR HYPERGLY) 140 mmol/L (136-145); CREATININE 0.94 mg/dL (0.70-1.30); SODIUM 138 mmol/L (136-145); TOTAL PROTEIN 4.9 g/dL (6.4-8.2); eGFR NON BLACK RACES > 60 (>60)
[2020-11-26 07:21] LABS: BAND NEUTROPHILS % 2 % (0-10); PLATELET MORPHOLOGY COMMENT NORMAL (NORMAL)
--- NOTE | 2020-11-26 07:50 | RAD ---
HISTORYPNEUMONIA F/USTUDYCHEST, 1 [id number]/06/2021FINDINGSPatchy bilateral areas of airspace opacity is probably pneumonia. No change from yesterday.No pleural effusion or pneumothorax.Heart size is normal.Bones are unremarkable.EKG leads are noted.IMPRESSION1. Unchanged bronchopneumoniaElectronically signed by: Stepan Carpenter (Nov 26, 2020 07:48:53)
[2020-11-26] MEDS: LIPITOR TAB 80 MG PO SCH (08:04)
[2020-11-26] MEDS: DIFLUCAN PO SCH (08:05)
[2020-11-26] MEDS: COREG TAB 12.5 MG PO SCH ×2 (08:05→21:26)
[2020-11-26] MEDS: LOVENOX INJ 80 MG SYR SC SCH ×2 (08:06→21:10)
[2020-11-26] MEDS: ACTOS PO SCH (08:07)
[2020-11-26] MEDS: GLUCOPHAGE XR 24-HR PO SCH ×2 (08:07→21:10)
[2020-11-26] MEDS: PULMICORT NEB TX 0.5 MG NEB SCH ×2 (08:30→20:51)
[2020-11-26] MEDS: BROVANA IN SCH ×2 (08:30→20:51)
[2020-11-26] MEDS: SOLU-Medrol 40 MG VIAL IVP SCH ×3 (10:00→21:12)
[2020-11-26] MEDS: VITAMIN D3 125 mcg (5,000 UNITS) PO SCH (10:00)
[2020-11-26] MEDS: ZINC SULFATE PO SCH ×2 (10:00→21:12)
[2020-11-26] MEDS: AVODART PO SCH (10:00)
[2020-11-26] MEDS: THIAMINE HCL INJ IVP SCH ×2 (10:00→21:11)
[2020-11-26] MEDS: PROTONIX INJ 40 MG VIAL IVP SCH ×2 (10:00→21:11)
[2020-11-26] MEDS: VITAMIN A PO SCH (10:00)
[2020-11-26] MEDS: PEPCID TAB 40 MG PO SCH ×2 (10:00→21:12)
[2020-11-26] MEDS ORDERED: NS 1/2 1000 ML IV 1,000 ML IV ONE ×3 (14:39→19:47)
[2020-11-26] MEDS: MELATONIN PO SCH (21:11)
[2020-11-27] MEDS: NS 1/2 1000 ML IV 1,000 ML IV SCH ×4 (01:47→20:54)
[2020-11-27] MEDS: SOLU-Medrol 40 MG VIAL IVP SCH (02:10)
[2020-11-27] MEDS: ASCORBIC ACID INJ MULTI-DOSE VIAL 1,500 MG in NS 100 ML IV 100 ML IV SCH ×4 (02:10→20:54)
[2020-11-27 05:13] LABS: BASOPHILS % (AUTO) 0.1 % (0.2-1.0); HEMATOCRIT 29.4 % (42.0-54.0); HEMOGLOBIN 10.7 g/dL (13.5-18.0); LYMPHOCYTES # (AUTO) 0.1 X10^3/uL (1.3-2.9); LYMPHOCYTES % (AUTO) 1.8 % (21.0-51.0); MEAN CORPUSCULAR HEMOGLOBIN 31.6 pg (27.0-34.0); MEAN CORPUSCULAR HGB CONC 36.2 g/dL (33.0-35.0); MEAN CORPUSCULAR VOLUME 87.2 fL (80.0-100.0); MEAN PLATELET VOLUME 7.9 fL (7.4-11.0); MONOCYTES # (AUTO) 0.3 x10^3/uL (0.3-0.8); MONOCYTES % (AUTO) 4.1 % (0.0-13.0); NEUTROPHILS # (AUTO) 7.5 x10^3/uL (2.2-4.8); PLATELET COUNT 201 X10^3/uL (150.0-450.0); RED BLOOD COUNT 3.37 X10^6/uL (4.7-6.0); RED CELL DISTRIBUTION WIDTH 13.5 % (11.6-16.5); WHITE BLOOD COUNT 7.9 X10^3/uL (3.6-10.0)
[2020-11-27] MEDS: CYTOTEC PO SCH ×3 (05:21→21:00)
[2020-11-27 05:38] LABS: ALANINE AMINOTRANSFERASE 61 Units/L (12-78); ALBUMIN 1.9 g/dL (3.4-5.0); ALKALINE PHOSPHATASE 46 Units/L (46-116); ASPARTATE AMINO TRANSFERASE 21 Units/L (15-37); BLOOD UREA NITROGEN 21 mg/dL (7-18); CALCIUM 6.5 mg/dL (8.5-10.1); CARBON DIOXIDE 28.6 mmol/L (21-32); CHLORIDE 103 mmol/L (98-107); COR CA(FOR HYPOALB) 8.2 mg/dL (8.5-10.1); COR NA(FOR HYPERGLY) 138 mmol/L (136-145); CREATININE 1.03 mg/dL (0.70-1.30); SODIUM 136 mmol/L (136-145); TOTAL PROTEIN 4.7 g/dL (6.4-8.2); eGFR NON BLACK RACES > 60 (>60)
[2020-11-27 05:44] LABS: ABG BASE EXCESS 7.5 mmol/L (-2.0-2.0)
[2020-11-27 05:45] LABS: ABG ALLEN TEST POS; ABG HCO3 31.1 mmol/L (22-26)
[2020-11-27 05:56] LABS: PLATELET MORPHOLOGY COMMENT NORMAL (NORMAL)
--- NOTE | 2020-11-27 08:00 | RAD ---
HISTORYPNEUMONIA F/USTUDYCHEST, 1 [id number]/07/2021FINDINGSPatchy bilateral areas of airspace opacity is compatible with bronchopneumonia. No change from yesterday.No significant effusion. No pneumothorax.Heart size is normal.Bones are unremarkable.EKG leads are noted.IMPRESSION1. Unchanged bronchopneumoniaElectronically signed by: Stepan Carpenter (Nov 27, 2020 07:58:11)
[2020-11-27] MEDS: AVODART PO SCH (08:44)
[2020-11-27] MEDS: ACTOS PO SCH (08:44)
[2020-11-27] MEDS: LIPITOR TAB 80 MG PO SCH (08:44)
[2020-11-27] MEDS: GLUCOPHAGE XR 24-HR PO SCH ×2 (08:45→20:55)
[2020-11-27] MEDS: VITAMIN A PO SCH (08:45)
[2020-11-27] MEDS: COREG TAB 12.5 MG PO SCH ×2 (08:45→20:55)
[2020-11-27] MEDS: DIFLUCAN PO SCH (08:46)
[2020-11-27] MEDS: VITAMIN D3 125 mcg (5,000 UNITS) PO SCH (08:46)
[2020-11-27] MEDS: THIAMINE HCL INJ IVP SCH ×2 (08:52→20:55)
[2020-11-27] MEDS ORDERED: NS 1/2 1000 ML IV 1,000 ML IV ONE ×2 (08:56→19:19)
[2020-11-27] MEDS ORDERED: PREDNISONE TAB 20 MG PO SCH (09:00)
[2020-11-27] MEDS: ZINC SULFATE PO SCH ×2 (10:00→20:55)
[2020-11-27] MEDS: PROTONIX INJ 40 MG VIAL IVP SCH ×2 (10:00→20:54)
[2020-11-27] MEDS: ELIQUIS PO SCH ×2 (10:00→20:56)
[2020-11-27] MEDS: PEPCID TAB 40 MG PO SCH ×2 (10:00→20:55)
[2020-11-27] MEDS: PULMICORT NEB TX 0.5 MG NEB SCH ×2 (10:20→21:45)
[2020-11-27] MEDS: BROVANA IN SCH ×2 (10:20→21:45)
[2020-11-27] MEDS: MELATONIN PO SCH (20:55)
[2020-11-28] MEDS: NS 1/2 1000 ML IV 1,000 ML IV SCH ×3 (01:54→16:20)
[2020-11-28] MEDS: ASCORBIC ACID INJ MULTI-DOSE VIAL 1,500 MG in NS 100 ML IV 100 ML IV SCH ×4 (02:11→21:14)
[2020-11-28] MEDS ORDERED: NS 1/2 1000 ML IV 1,000 ML IV ONE (03:54)
[2020-11-28 04:48] LABS: BASOPHILS % (AUTO) 0.2 % (0.2-1.0); EOSINOPHILS % (AUTO) 0.1 % (0.9-2.9); HEMATOCRIT 30.2 % (42.0-54.0); HEMOGLOBIN 10.7 g/dL (13.5-18.0); LYMPHOCYTES # (AUTO) 0.4 X10^3/uL (1.3-2.9); LYMPHOCYTES % (AUTO) 4.5 % (21.0-51.0); MEAN CORPUSCULAR HEMOGLOBIN 31.4 pg (27.0-34.0); MEAN CORPUSCULAR HGB CONC 35.4 g/dL (33.0-35.0); MEAN CORPUSCULAR VOLUME 88.6 fL (80.0-100.0); MEAN PLATELET VOLUME 7.8 fL (7.4-11.0); MONOCYTES # (AUTO) 0.3 x10^3/uL (0.3-0.8); MONOCYTES % (AUTO) 3.2 % (0.0-13.0); NEUTROPHILS # (AUTO) 7.9 x10^3/uL (2.2-4.8); PLATELET COUNT 159 X10^3/uL (150.0-450.0); RED BLOOD COUNT 3.41 X10^6/uL (4.7-6.0); RED CELL DISTRIBUTION WIDTH 13.7 % (11.6-16.5); WHITE BLOOD COUNT 8.6 X10^3/uL (3.6-10.0)
[2020-11-28] MEDS: CYTOTEC PO SCH ×3 (05:00→21:21)
[2020-11-28 05:01] LABS: ALANINE AMINOTRANSFERASE 54 Units/L (12-78); ALBUMIN 1.8 g/dL (3.4-5.0); ALKALINE PHOSPHATASE 39 Units/L (46-116); ASPARTATE AMINO TRANSFERASE 27 Units/L (15-37); BLOOD UREA NITROGEN 16 mg/dL (7-18); CALCIUM 6.5 mg/dL (8.5-10.1); CARBON DIOXIDE 29.5 mmol/L (21-32); CHLORIDE 106 mmol/L (98-107); COR CA(FOR HYPOALB) 8.3 mg/dL (8.5-10.1); CREATININE 1.12 mg/dL (0.70-1.30); SODIUM 140 mmol/L (136-145); TOTAL PROTEIN 4.6 g/dL (6.4-8.2); eGFR NON BLACK RACES > 60 (>60)
[2020-11-28 05:49] LABS: ABG ALLEN TEST POS; ABG HCO3 30.2 mmol/L (22-26)
[2020-11-28 05:56] LABS: PLATELET MORPHOLOGY COMMENT NORMAL (NORMAL)
--- NOTE | 2020-11-28 08:06 | RAD ---
HISTORYCOVID PNEUMONIASTUDYCHEST, 1 [id number]/08/2021FINDINGSPatchy bilateral areas of opacity are present. There has been a slight progression since the prior study, particularly in the right lung.No pleural effusion on the left. Possible small right effusion unchanged. No pneumothorax.Heart size is normal.Bones are unremarkable.EKG leads are noted.IMPRESSION1. Progressed bronchopneumoniaElectronically signed by: Stepan Carpenter (Nov 28, 2020 08:05:06)
[2020-11-28] MEDS: ZINC SULFATE PO SCH ×2 (08:52→21:21)
[2020-11-28] MEDS: PEPCID TAB 40 MG PO SCH ×2 (08:53→21:17)
[2020-11-28] MEDS: AVODART PO SCH (08:53)
[2020-11-28] MEDS: LIPITOR TAB 80 MG PO SCH (08:53)
[2020-11-28] MEDS: VITAMIN D3 125 mcg (5,000 UNITS) PO SCH (08:53)
[2020-11-28] MEDS: ACTOS PO SCH (08:54)
[2020-11-28] MEDS: ELIQUIS PO SCH ×2 (08:54→21:15)
[2020-11-28] MEDS: DIFLUCAN PO SCH (08:55)
[2020-11-28] MEDS: GLUCOPHAGE XR 24-HR PO SCH ×2 (08:55→21:16)
[2020-11-28] MEDS: COREG TAB 12.5 MG PO SCH ×2 (08:56→21:15)
[2020-11-28] MEDS: VITAMIN A PO SCH (08:58)
[2020-11-28] MEDS: THIAMINE HCL INJ IVP SCH ×2 (08:58→21:20)
[2020-11-28] MEDS: PROTONIX INJ 40 MG VIAL IVP SCH ×2 (09:00→21:18)
[2020-11-28] MEDS ORDERED: VANCOMYCIN IV *PREMIX 1 G/200 ML BAG 1 G/200 ML PIGGYBACK IV STA (09:30)
[2020-11-28] MEDS: BROVANA IN SCH ×2 (09:40→20:56)
[2020-11-28] MEDS: PULMICORT NEB TX 0.5 MG NEB SCH ×2 (09:40→20:56)
[2020-11-28] MEDS ORDERED: PHARMACY CONSULT - VANCOMYCIN XX SCH (10:00)
[2020-11-28] MEDS: SOLU-Medrol 125 MG VIAL IVP SCH ×3 (10:00→21:19)
[2020-11-28] MEDS: VANCOMYCIN IV *PREMIX 1 G/200 ML BAG 1 G/200 ML PIGGYBACK IV SCH ×2 (10:00→21:20)
[2020-11-28] MEDS: AVELOX IV 400 MG/250 ML BAG 400 MG/250 ML PIGGYBACK IV SCH (11:00)
--- NOTE | 2020-11-28 11:58 | RAD ---
HISTORYINCREASING HYPOXIASTUDYCHEST x-ray, 1 VIEWCOMPARISONX-ray from same dayFINDINGSThe trachea is midline. The cardiac silhouette is unremarkable .Prominent bilateral lung infiltrates are similar to prior exam. No pneumothorax or pleural effusion is seen.No acute bony abnormality is seen.IMPRESSIONBilateral pneumonia appears unchanged.Electronically signed by: Buddy Marcano (Nov 28, 2020 11:55:41)
[2020-11-28] MEDS: MELATONIN PO SCH (21:16)
[2020-11-29] MEDS: NS 1/2 1000 ML IV 1,000 ML IV SCH ×4 (02:52→16:32)
[2020-11-29] MEDS: ASCORBIC ACID INJ MULTI-DOSE VIAL 1,500 MG in NS 100 ML IV 100 ML IV SCH ×4 (03:03→21:00)
[2020-11-29] MEDS: SOLU-Medrol 125 MG VIAL IVP SCH ×4 (03:03→20:53)
[2020-11-29 05:14] LABS: BASOPHILS % (AUTO) 0.1 % (0.2-1.0); HEMATOCRIT 28.8 % (42.0-54.0); HEMOGLOBIN 10.2 g/dL (13.5-18.0); LYMPHOCYTES # (AUTO) 0.1 X10^3/uL (1.3-2.9); LYMPHOCYTES % (AUTO) 1.9 % (21.0-51.0); MEAN CORPUSCULAR HEMOGLOBIN 31.6 pg (27.0-34.0); MEAN CORPUSCULAR HGB CONC 35.3 g/dL (33.0-35.0); MEAN CORPUSCULAR VOLUME 89.4 fL (80.0-100.0); MONOCYTES # (AUTO) 0.1 x10^3/uL (0.3-0.8); MONOCYTES % (AUTO) 1.2 % (0.0-13.0); NEUTROPHILS # (AUTO) 6.8 x10^3/uL (2.2-4.8); NEUTROPHILS % (AUTO) 96.8 % (42.0-75.0); PLATELET COUNT 130 X10^3/uL (150.0-450.0); RED BLOOD COUNT 3.22 X10^6/uL (4.7-6.0)
[2020-11-29 05:17] LABS: ALANINE AMINOTRANSFERASE 50 Units/L (12-78); ALBUMIN 1.5 g/dL (3.4-5.0); ALKALINE PHOSPHATASE 43 Units/L (46-116); ASPARTATE AMINO TRANSFERASE 25 Units/L (15-37); BLOOD UREA NITROGEN 27 mg/dL (7-18); CALCIUM 6.7 mg/dL (8.5-10.1); CARBON DIOXIDE 27.7 mmol/L (21-32); CHLORIDE 105 mmol/L (98-107); COR CA(FOR HYPOALB) 8.7 mg/dL (8.5-10.1); COR NA(FOR HYPERGLY) 141 mmol/L (136-145); SODIUM 140 mmol/L (136-145); TOTAL PROTEIN 4.7 g/dL (6.4-8.2); eGFR NON BLACK RACES > 60 (>60)
[2020-11-29 05:28] LABS: ABG BASE EXCESS -0.4 mmol/L (-2.0-2.0); ABG HCO3 24.1 mmol/L (22-26)
[2020-11-29 05:29] LABS: ABG ALLEN TEST POS
[2020-11-29] MEDS ORDERED: NS 1/2 1000 ML IV 1,000 ML IV ONE ×2 (05:36→16:29)
[2020-11-29] MEDS: CYTOTEC PO SCH ×3 (05:45→21:00)
[2020-11-29 05:55] LABS: PLATELET MORPHOLOGY COMMENT NORMAL (NORMAL)
--- NOTE | 2020-11-29 07:10 | RAD ---
HISTORYCOVID PNEUMONIA Relevant Clinical InformationSTUDYCHEST, 1 [id number]/09/2021FINDINGSThe trachea is midline. The cardiac silhouette is unremarkable. Patchy bilateral pneumonic infiltrates minimally improved.. No pneumothorax.. The bony thorax is unremarkable.IMPRESSIONPatchy bilateral pneumonic infiltrates minimally improved from 11/28/2020lectronically signed by: Tomas Bolden (Nov 29, 2020 07:08:32)
[2020-11-29] MEDS: PULMICORT NEB TX 0.5 MG NEB SCH ×2 (08:33→20:55)
[2020-11-29] MEDS: BROVANA IN SCH ×2 (08:33→20:55)
[2020-11-29] MEDS: PROVENTIL NEB TX 0.083% 2.5MG/ 3ML NEB PRN ×2 (08:33→14:09)
[2020-11-29] MEDS: ACTOS PO SCH (09:35)
[2020-11-29] MEDS: COREG TAB 12.5 MG PO SCH ×2 (09:35→23:43)
[2020-11-29] MEDS: AVODART PO SCH (09:35)
[2020-11-29] MEDS: ELIQUIS PO SCH ×2 (09:36→21:00)
[2020-11-29] MEDS: DIFLUCAN PO SCH (09:36)
[2020-11-29] MEDS: LIPITOR TAB 80 MG PO SCH (09:36)
[2020-11-29] MEDS: GLUCOPHAGE XR 24-HR PO SCH ×2 (09:36→21:00)
[2020-11-29] MEDS: PEPCID TAB 40 MG PO SCH ×2 (09:36→21:00)
[2020-11-29] MEDS: PROTONIX INJ 40 MG VIAL IVP SCH ×2 (09:37→20:50)
[2020-11-29] MEDS: THIAMINE HCL INJ IVP SCH ×2 (09:38→20:55)
[2020-11-29] MEDS: VITAMIN D3 125 mcg (5,000 UNITS) PO SCH (09:39)
[2020-11-29] MEDS: ZINC SULFATE PO SCH ×2 (09:39→21:00)
[2020-11-29] MEDS: VITAMIN A PO SCH (09:39)
[2020-11-29] MEDS: AVELOX IV 400 MG/250 ML BAG 400 MG/250 ML PIGGYBACK IV SCH (10:24)
[2020-11-29] MEDS: VANCOMYCIN IV *PREMIX 1 G/200 ML BAG 1 G/200 ML PIGGYBACK IV SCH (10:59)
[2020-11-29] MEDS ORDERED: PHARMACY COMMENT IV NR (20:30)
[2020-11-29] MEDS: MELATONIN PO SCH (21:00)
[2020-11-29 21:41] LABS: CREATININE 1.23 mg/dL (0.70-1.30); VANCOMYCIN,TROUGH 10.8 ug/mL (15-20)
[2020-11-29] MEDS ORDERED: VANCOMYCIN IV *PREMIX 1 G/200 ML BAG 1 G/200 ML PIGGYBACK IV SCH (23:00)
[2020-11-30] MEDS: VANCOMYCIN IV *PREMIX 1 G/200 ML BAG 1 G/200 ML PIGGYBACK IV SCH ×4 (00:03→23:18)
[2020-11-30] MEDS ORDERED: NS 1/2 1000 ML IV 1,000 ML IV ONE ×2 (01:18→09:30)
[2020-11-30] MEDS: NS 1/2 1000 ML IV 1,000 ML IV SCH ×3 (02:07→17:52)
[2020-11-30] MEDS: ASCORBIC ACID INJ MULTI-DOSE VIAL 1,500 MG in NS 100 ML IV 100 ML IV SCH ×4 (03:44→21:08)
[2020-11-30] MEDS: SOLU-Medrol 125 MG VIAL IVP SCH ×5 (03:45→21:47)
[2020-11-30] MEDS: CYTOTEC PO SCH ×3 (06:10→22:30)
[2020-11-30 07:13] LABS: BASOPHILS % (AUTO) 0.1 % (0.2-1.0); HEMATOCRIT 32.5 % (42.0-54.0); HEMOGLOBIN 11.2 g/dL (13.5-18.0); LYMPHOCYTES # (AUTO) 0.2 X10^3/uL (1.3-2.9); LYMPHOCYTES % (AUTO) 1.6 % (21.0-51.0); MEAN CORPUSCULAR HEMOGLOBIN 31.3 pg (27.0-34.0); MEAN CORPUSCULAR HGB CONC 34.5 g/dL (33.0-35.0); MEAN CORPUSCULAR VOLUME 90.6 fL (80.0-100.0); MEAN PLATELET VOLUME 8.1 fL (7.4-11.0); MONOCYTES # (AUTO) 0.3 x10^3/uL (0.3-0.8); NEUTROPHILS # (AUTO) 9.7 x10^3/uL (2.2-4.8); NEUTROPHILS % (AUTO) 95.3 % (42.0-75.0); PLATELET COUNT 129 X10^3/uL (150.0-450.0); RED BLOOD COUNT 3.59 X10^6/uL (4.7-6.0); RED CELL DISTRIBUTION WIDTH 14.4 % (11.6-16.5); WHITE BLOOD COUNT 10.2 X10^3/uL (3.6-10.0)
[2020-11-30 07:24] LABS: ALANINE AMINOTRANSFERASE 54 Units/L (12-78); ALBUMIN 1.6 g/dL (3.4-5.0); ALKALINE PHOSPHATASE 54 Units/L (46-116); ASPARTATE AMINO TRANSFERASE 29 Units/L (15-37); BLOOD UREA NITROGEN 28 mg/dL (7-18); CALCIUM 6.8 mg/dL (8.5-10.1); CARBON DIOXIDE 26.7 mmol/L (21-32); CHLORIDE 106 mmol/L (98-107); COR CA(FOR HYPOALB) 8.7 mg/dL (8.5-10.1); COR NA(FOR HYPERGLY) 142 mmol/L (136-145); SODIUM 139 mmol/L (136-145); eGFR NON BLACK RACES > 60 (>60)
[2020-11-30 08:07] LABS: PLATELET MORPHOLOGY COMMENT NORMAL (NORMAL)
[2020-11-30] MEDS: COREG TAB 12.5 MG PO SCH ×2 (08:28→22:30)
[2020-11-30] MEDS: ACTOS PO SCH (08:28)
[2020-11-30] MEDS: AVODART PO SCH (08:28)
[2020-11-30] MEDS: GLUCOPHAGE XR 24-HR PO SCH ×2 (08:29→22:30)
[2020-11-30] MEDS: LIPITOR TAB 80 MG PO SCH (08:29)
[2020-11-30] MEDS: ELIQUIS PO SCH ×2 (08:29→22:30)
[2020-11-30] MEDS: PEPCID TAB 40 MG PO SCH ×2 (08:30→22:30)
[2020-11-30] MEDS: PROTONIX INJ 40 MG VIAL IVP SCH ×2 (08:30→22:30)
[2020-11-30] MEDS: THIAMINE HCL INJ IVP SCH ×2 (08:30→22:35)
[2020-11-30] MEDS: VITAMIN A PO SCH (08:31)
[2020-11-30] MEDS: VITAMIN D3 125 mcg (5,000 UNITS) PO SCH (08:31)
[2020-11-30] MEDS: ZINC SULFATE PO SCH ×2 (08:31→22:30)
[2020-11-30] MEDS: DIFLUCAN PO SCH (08:32)
[2020-11-30] MEDS: BROVANA IN SCH ×2 (09:34→21:34)
[2020-11-30] MEDS: PULMICORT NEB TX 0.5 MG NEB SCH ×2 (09:34→21:34)
[2020-11-30] MEDS ORDERED: DIFLUCAN 200 MG IV PREMIX* 200 MG/100 ML BAG IV ONE (10:33)
[2020-11-30] MEDS: AVELOX IV 400 MG/250 ML BAG 400 MG/250 ML PIGGYBACK IV SCH (11:00)
[2020-11-30] MEDS ORDERED: LR 1000 ML IV 1,000 ML IV ONE (12:23)
[2020-11-30] MEDS: MELATONIN PO SCH (22:30)
[2020-12-01] MEDS: NS 1/2 1000 ML IV 1,000 ML IV SCH ×4 (03:11→23:30)
[2020-12-01] MEDS: ASCORBIC ACID INJ MULTI-DOSE VIAL 1,500 MG in NS 100 ML IV 100 ML IV SCH ×4 (05:00→21:35)
[2020-12-01] MEDS ORDERED: PHARMACY COMMENT IV ONE (05:30)
[2020-12-01] MEDS: SOLU-Medrol 125 MG VIAL IVP SCH ×4 (05:30→21:35)
[2020-12-01 06:33] LABS: ALANINE AMINOTRANSFERASE 50 Units/L (12-78); ALBUMIN 1.5 g/dL (3.4-5.0); ALKALINE PHOSPHATASE 59 Units/L (46-116); ASPARTATE AMINO TRANSFERASE 35 Units/L (15-37); BLOOD UREA NITROGEN 24 mg/dL (7-18); CALCIUM 6.8 mg/dL (8.5-10.1); CARBON DIOXIDE 24.7 mmol/L (21-32); CHLORIDE 107 mmol/L (98-107); COR CA(FOR HYPOALB) 8.8 mg/dL (8.5-10.1); COR NA(FOR HYPERGLY) 141 mmol/L (136-145); CREATININE 1.07 mg/dL (0.70-1.30); SODIUM 139 mmol/L (136-145); eGFR NON BLACK RACES > 60 (>60)
[2020-12-01 06:45] LABS: BASOPHILS % (AUTO) 0.3 % (0.2-1.0); CREATININE 1.05 mg/dL (0.70-1.30); HEMATOCRIT 30.1 % (42.0-54.0); HEMOGLOBIN 10.6 g/dL (13.5-18.0); LYMPHOCYTES # (AUTO) 0.1 X10^3/uL (1.3-2.9); LYMPHOCYTES % (AUTO) 1.2 % (21.0-51.0); MEAN CORPUSCULAR HEMOGLOBIN 31.7 pg (27.0-34.0); MEAN CORPUSCULAR HGB CONC 35.2 g/dL (33.0-35.0); MEAN CORPUSCULAR VOLUME 90.2 fL (80.0-100.0); MEAN PLATELET VOLUME 8.3 fL (7.4-11.0); MONOCYTES # (AUTO) 0.3 x10^3/uL (0.3-0.8); MONOCYTES % (AUTO) 2.6 % (0.0-13.0); NEUTROPHILS # (AUTO) 9.2 x10^3/uL (2.2-4.8); NEUTROPHILS % (AUTO) 95.9 % (42.0-75.0); PLATELET COUNT 110 X10^3/uL (150.0-450.0); RED BLOOD COUNT 3.33 X10^6/uL (4.7-6.0); RED CELL DISTRIBUTION WIDTH 14.5 % (11.6-16.5); VANCOMYCIN,TROUGH 18.2 ug/mL (15-20); WHITE BLOOD COUNT 9.6 X10^3/uL (3.6-10.0)
[2020-12-01] MEDS: CYTOTEC PO SCH ×3 (07:33→21:35)
[2020-12-01 08:18] LABS: PLATELET MORPHOLOGY COMMENT NORMAL (NORMAL)
[2020-12-01] MEDS: PULMICORT NEB TX 0.5 MG NEB SCH ×2 (08:59→21:00)
[2020-12-01] MEDS: BROVANA IN SCH ×2 (08:59→21:00)
[2020-12-01] MEDS: ACTOS PO SCH (09:31)
[2020-12-01] MEDS: PROTONIX INJ 40 MG VIAL IVP SCH ×2 (09:32→21:35)
[2020-12-01] MEDS: PEPCID TAB 40 MG PO SCH ×2 (09:32→21:35)
[2020-12-01] MEDS: GLUCOPHAGE XR 24-HR PO SCH ×2 (09:33→21:35)
[2020-12-01] MEDS: AVODART PO SCH (09:33)
[2020-12-01] MEDS: LIPITOR TAB 80 MG PO SCH (09:33)
[2020-12-01] MEDS: ZINC SULFATE PO SCH ×2 (09:34→21:35)
[2020-12-01] MEDS: VITAMIN D3 125 mcg (5,000 UNITS) PO SCH (09:34)
[2020-12-01] MEDS: THIAMINE HCL INJ IVP SCH ×2 (09:34→21:35)
[2020-12-01] MEDS: ELIQUIS PO SCH ×2 (09:35→21:35)
[2020-12-01] MEDS: DIFLUCAN PO SCH (09:35)
[2020-12-01] MEDS: COREG TAB 12.5 MG PO SCH ×2 (09:35→21:35)
[2020-12-01] MEDS: VITAMIN A PO SCH (09:36)
[2020-12-01] MEDS ORDERED: NS 1/2 1000 ML IV 1,000 ML IV ONE ×2 (09:38→21:55)
[2020-12-01] MEDS ORDERED: TYGACIL 50 MG VIAL 100 MG in NS 100 ML IV 100 ML IV ONE (10:00)
[2020-12-01] MEDS: AVELOX IV 400 MG/250 ML BAG 400 MG/250 ML PIGGYBACK IV SCH (10:55)
[2020-12-01] MEDS: VANCOMYCIN IV *PREMIX 1 G/200 ML BAG 1 G/200 ML PIGGYBACK IV SCH ×3 (11:06→21:35)
[2020-12-01] MEDS ORDERED: NS 100 ML IV 100 ML ONE (14:14)
--- NOTE | 2020-12-01 19:50 | RAD ---
HISTORYCOVID WITH SECONDARY PNEUMONIASTUDYCHEST, 1 [id number]/10/2021.TECHNIQUEAP view of the chestFINDINGSThe cardiac silhouette is stably enlarged. Mediastinal contours appear stable. No significant change in bilateral airspace and interstitial opacities. No definite pleural effusion or pneumothorax.IMPRESSIONNo significant change in COVID 19 pneumonia.Electronically signed by: Loco Whalen (Dec 01, 2020 19:47:59)
[2020-12-01] MEDS: MELATONIN PO SCH (21:35)
[2020-12-01] MEDS: TYGACIL 50 MG VIAL 50 MG in NS 100 ML IV 100 ML IV SCH (23:05)
[2020-12-02] MEDS: SOLU-Medrol 125 MG VIAL IVP SCH ×2 (03:00→08:16)
[2020-12-02] MEDS: ASCORBIC ACID INJ MULTI-DOSE VIAL 1,500 MG in NS 100 ML IV 100 ML IV SCH ×4 (03:00→20:30)
[2020-12-02 04:59] LABS: BASOPHILS % (AUTO) 0.2 % (0.2-1.0); HEMATOCRIT 29.5 % (42.0-54.0); HEMOGLOBIN 10.3 g/dL (13.5-18.0); LYMPHOCYTES # (AUTO) 0.1 X10^3/uL (1.3-2.9); LYMPHOCYTES % (AUTO) 1.2 % (21.0-51.0); MEAN CORPUSCULAR HEMOGLOBIN 31.4 pg (27.0-34.0); MEAN CORPUSCULAR HGB CONC 34.8 g/dL (33.0-35.0); MEAN CORPUSCULAR VOLUME 90.1 fL (80.0-100.0); MEAN PLATELET VOLUME 8.4 fL (7.4-11.0); MONOCYTES # (AUTO) 0.2 x10^3/uL (0.3-0.8); MONOCYTES % (AUTO) 2.1 % (0.0-13.0); NEUTROPHILS # (AUTO) 7.2 x10^3/uL (2.2-4.8); NEUTROPHILS % (AUTO) 96.5 % (42.0-75.0); PLATELET COUNT 95 X10^3/uL (150.0-450.0); RED BLOOD COUNT 3.27 X10^6/uL (4.7-6.0); RED CELL DISTRIBUTION WIDTH 14.6 % (11.6-16.5); WHITE BLOOD COUNT 7.4 X10^3/uL (3.6-10.0)
[2020-12-02 05:07] LABS: ALANINE AMINOTRANSFERASE 47 Units/L (12-78); ALBUMIN 1.4 g/dL (3.4-5.0); ALKALINE PHOSPHATASE 63 Units/L (46-116); ASPARTATE AMINO TRANSFERASE 32 Units/L (15-37); BLOOD UREA NITROGEN 29 mg/dL (7-18); CALCIUM 6.5 mg/dL (8.5-10.1); CARBON DIOXIDE 29.7 mmol/L (21-32); CHLORIDE 107 mmol/L (98-107); COR CA(FOR HYPOALB) 8.6 mg/dL (8.5-10.1); COR NA(FOR HYPERGLY) 144 mmol/L (136-145); CREATININE 1.14 mg/dL (0.70-1.30); SODIUM 142 mmol/L (136-145); TOTAL PROTEIN 4.7 g/dL (6.4-8.2); eGFR NON BLACK RACES > 60 (>60)
[2020-12-02 05:35] LABS: BAND NEUTROPHILS % 1 % (0-10); PLATELET MORPHOLOGY COMMENT NORMAL (NORMAL)
[2020-12-02] MEDS: CYTOTEC PO SCH ×3 (06:09→20:30)
[2020-12-02] MEDS: VANCOMYCIN IV *PREMIX 1 G/200 ML BAG 1 G/200 ML PIGGYBACK IV SCH ×3 (06:10→22:00)
--- NOTE | 2020-12-02 07:58 | RAD ---
HISTORYCOVID-19STUDYAP omjukQPZXPUQQBM22/12/2021FINDINGSCardiomegaly again noted. There is no change in appearance of the le ft-sided airspace disease. There is slight apparent progression of similar process in the right lower lobe. No developing pleural fluid or pneumothorax seen.IMPRESSIONPersistent bilateral pneumonia with slight progression in the right lower lobe.Electronically signed by: MIKE LION (Dec 02, 2020 07 :56:35)
[2020-12-02] MEDS: TYGACIL 50 MG VIAL 50 MG in NS 100 ML IV 100 ML IV SCH ×2 (08:21→20:30)
[2020-12-02] MEDS: ACTOS PO SCH (08:21)
[2020-12-02] MEDS: ELIQUIS PO SCH ×2 (08:22→20:30)
[2020-12-02] MEDS: COREG TAB 12.5 MG PO SCH ×2 (08:22→20:30)
[2020-12-02] MEDS: AVODART PO SCH (08:22)
[2020-12-02] MEDS: LIPITOR TAB 80 MG PO SCH (08:23)
[2020-12-02] MEDS: GLUCOPHAGE XR 24-HR PO SCH ×2 (08:23→20:30)
[2020-12-02] MEDS: PROTONIX INJ 40 MG VIAL IVP SCH ×2 (08:23→20:30)
[2020-12-02] MEDS: PEPCID TAB 40 MG PO SCH ×2 (08:23→20:30)
[2020-12-02] MEDS: VITAMIN A PO SCH (08:24)
[2020-12-02] MEDS: THIAMINE HCL INJ IVP SCH ×2 (08:24→20:30)
[2020-12-02] MEDS ORDERED: NS 1/2 1000 ML IV 1,000 ML IV ONE ×2 (08:31→19:26)
[2020-12-02] MEDS: BROVANA IN SCH ×2 (09:19→21:17)
[2020-12-02] MEDS: PULMICORT NEB TX 0.5 MG NEB SCH ×2 (09:19→21:17)
[2020-12-02] MEDS ORDERED: NS 250 ML IV 250 ML IV ONE (09:39)
[2020-12-02] MEDS: AVELOX IV 400 MG/250 ML BAG 400 MG/250 ML PIGGYBACK IV SCH (09:54)
[2020-12-02] MEDS: DIFLUCAN PO SCH (09:55)
[2020-12-02] MEDS: VITAMIN D3 125 mcg (5,000 UNITS) PO SCH (09:56)
[2020-12-02] MEDS: ZINC SULFATE PO SCH ×2 (09:57→20:30)
[2020-12-02] MEDS: NS 1/2 1000 ML IV 1,000 ML IV SCH ×3 (10:05→21:01)
[2020-12-02] MEDS: SOLU-Medrol 40 MG VIAL IVP SCH ×3 (11:46→20:30)
[2020-12-02] MEDS: MELATONIN PO SCH (20:30)
[2020-12-03] MEDS: NS 1/2 1000 ML IV 1,000 ML IV SCH ×3 (03:23→18:30)
[2020-12-03] MEDS: ASCORBIC ACID INJ MULTI-DOSE VIAL 1,500 MG in NS 100 ML IV 100 ML IV SCH ×4 (03:24→22:45)
[2020-12-03] MEDS: SOLU-Medrol 40 MG VIAL IVP SCH ×2 (03:24→08:47)
[2020-12-03 05:13] LABS: ABG ALLEN TEST POS; ABG BASE EXCESS 0.8 mmol/L (-2.0-2.0); ABG HCO3 24.2 mmol/L (22-26)
[2020-12-03 05:13] LABS: BASOPHILS # (AUTO) 0.1 X10^3/uL (0.0-0.1); HEMATOCRIT 31.2 % (42.0-54.0); HEMOGLOBIN 11.1 g/dL (13.5-18.0); LYMPHOCYTES # (AUTO) 0.1 X10^3/uL (1.3-2.9); LYMPHOCYTES % (AUTO) 1.3 % (21.0-51.0); MEAN CORPUSCULAR HEMOGLOBIN 31.8 pg (27.0-34.0); MEAN CORPUSCULAR HGB CONC 35.5 g/dL (33.0-35.0); MEAN CORPUSCULAR VOLUME 89.7 fL (80.0-100.0); MEAN PLATELET VOLUME 8.5 fL (7.4-11.0); MONOCYTES # (AUTO) 0.2 x10^3/uL (0.3-0.8); MONOCYTES % (AUTO) 1.6 % (0.0-13.0); NEUTROPHILS # (AUTO) 10.3 x10^3/uL (2.2-4.8); NEUTROPHILS % (AUTO) 96.1 % (42.0-75.0); PLATELET COUNT 91 X10^3/uL (150.0-450.0); RED BLOOD COUNT 3.47 X10^6/uL (4.7-6.0); RED CELL DISTRIBUTION WIDTH 14.8 % (11.6-16.5); WHITE BLOOD COUNT 10.8 X10^3/uL (3.6-10.0)
[2020-12-03 05:25] LABS: ALANINE AMINOTRANSFERASE 50 Units/L (12-78); ALBUMIN 1.4 g/dL (3.4-5.0); ALKALINE PHOSPHATASE 77 Units/L (46-116); ASPARTATE AMINO TRANSFERASE 33 Units/L (15-37); BLOOD UREA NITROGEN 35 mg/dL (7-18); CALCIUM 6.3 mg/dL (8.5-10.1); CHLORIDE 108 mmol/L (98-107); COR CA(FOR HYPOALB) 8.4 mg/dL (8.5-10.1); COR NA(FOR HYPERGLY) 143 mmol/L (136-145); CREATININE 1.02 mg/dL (0.70-1.30); SODIUM 141 mmol/L (136-145); TOTAL PROTEIN 4.5 g/dL (6.4-8.2); eGFR NON BLACK RACES > 60 (>60)
[2020-12-03] MEDS ORDERED: NS 1/2 1000 ML IV 1,000 ML IV ONE ×2 (05:38→18:28)
[2020-12-03 05:41] LABS: PLATELET MORPHOLOGY COMMENT NORMAL (NORMAL)
[2020-12-03] MEDS: CYTOTEC PO SCH ×4 (06:00→22:23)
[2020-12-03] MEDS: VANCOMYCIN IV *PREMIX 1 G/200 ML BAG 1 G/200 ML PIGGYBACK IV SCH ×2 (06:01→14:53)
[2020-12-03] MEDS: TYGACIL 50 MG VIAL 50 MG in NS 100 ML IV 100 ML IV SCH ×2 (07:51→19:55)
[2020-12-03] MEDS: ACTOS PO SCH (08:42)
--- NOTE | 2020-12-03 08:42 | RAD ---
HISTORYCOVID PNEUMONIASTUDYCHEST x-ray, 1 VIEWCOMPARISONX-ray 12/02/2020FINDINGSHeart is normal in size. Bilateral lung infiltrates are unchanged. No pneumothorax or pleural effusion is seen.IMPRESSIONAppearance of the chest is unchanged.Electronically signed by: Buddy Marcano (Dec 03, 2020 08:40:43)
[2020-12-03] MEDS: AVODART PO SCH (08:43)
[2020-12-03] MEDS: COREG TAB 12.5 MG PO SCH ×2 (08:43→22:24)
[2020-12-03] MEDS: GLUCOPHAGE XR 24-HR PO SCH ×2 (08:44→22:22)
[2020-12-03] MEDS: DIFLUCAN PO SCH (08:44)
[2020-12-03] MEDS: ELIQUIS PO SCH ×2 (08:44→22:24)
[2020-12-03] MEDS: LIPITOR TAB 80 MG PO SCH (08:45)
[2020-12-03] MEDS: PEPCID TAB 40 MG PO SCH ×2 (08:45→22:22)
[2020-12-03] MEDS: VITAMIN A PO SCH (08:46)
[2020-12-03] MEDS: PROTONIX INJ 40 MG VIAL IVP SCH ×2 (08:46→22:34)
[2020-12-03] MEDS: THIAMINE HCL INJ IVP SCH ×2 (08:47→22:45)
[2020-12-03] MEDS: VITAMIN D3 125 mcg (5,000 UNITS) PO SCH (08:48)
[2020-12-03] MEDS: ZINC SULFATE PO SCH ×2 (08:48→22:23)
[2020-12-03] MEDS: AVELOX IV 400 MG/250 ML BAG 400 MG/250 ML PIGGYBACK IV SCH (09:00)
[2020-12-03] MEDS: PULMICORT NEB TX 0.5 MG NEB SCH ×2 (09:15→21:44)
[2020-12-03] MEDS: BROVANA IN SCH ×2 (09:15→21:44)
[2020-12-03] MEDS: SOLU-Medrol 125 MG VIAL IVP SCH ×2 (14:54→22:34)
[2020-12-03] MEDS ORDERED: BUTT CREAM (COMPOUND) ONE (17:05)
[2020-12-03] MEDS: BUTT CREAM (COMPOUND) TOP PRN (18:43)
[2020-12-03] MEDS ORDERED: NS 100 ML IV 100 ML ONE (18:49)
[2020-12-03] MEDS: MELATONIN PO SCH (22:22)
[2020-12-04] MEDS: VANCOMYCIN IV *PREMIX 1 G/200 ML BAG 1 G/200 ML PIGGYBACK IV SCH ×3 (00:51→15:47)
[2020-12-04] MEDS ORDERED: NS 1/2 1000 ML IV 1,000 ML IV ONE ×2 (02:37→17:34)
[2020-12-04] MEDS: NS 1/2 1000 ML IV 1,000 ML IV SCH ×4 (02:43→17:39)
[2020-12-04] MEDS: ASCORBIC ACID INJ MULTI-DOSE VIAL 1,500 MG in NS 100 ML IV 100 ML IV SCH ×4 (04:15→21:37)
[2020-12-04] MEDS: SOLU-Medrol 125 MG VIAL IVP SCH ×4 (04:50→22:25)
[2020-12-04 05:02] LABS: ABG HCO3 23.8 mmol/L (22-26)
[2020-12-04 05:04] LABS: ABG ALLEN TEST POS
[2020-12-04] MEDS: CYTOTEC PO SCH ×2 (05:43→14:36)
[2020-12-04 05:54] LABS: BASOPHILS # (AUTO) 0.1 X10^3/uL (0.0-0.1); BASOPHILS % (AUTO) 0.4 % (0.2-1.0); HEMATOCRIT 33.4 % (42.0-54.0); HEMOGLOBIN 11.5 g/dL (13.5-18.0); LYMPHOCYTES # (AUTO) 0.1 X10^3/uL (1.3-2.9); MEAN CORPUSCULAR HEMOGLOBIN 30.7 pg (27.0-34.0); MEAN CORPUSCULAR HGB CONC 34.4 g/dL (33.0-35.0); MEAN CORPUSCULAR VOLUME 89.4 fL (80.0-100.0); MEAN PLATELET VOLUME 8.5 fL (7.4-11.0); MONOCYTES # (AUTO) 0.1 x10^3/uL (0.3-0.8); MONOCYTES % (AUTO) 0.8 % (0.0-13.0); NEUTROPHILS % (AUTO) 97.8 % (42.0-75.0); PLATELET COUNT 83 X10^3/uL (150.0-450.0); RED BLOOD COUNT 3.74 X10^6/uL (4.7-6.0); RED CELL DISTRIBUTION WIDTH 14.7 % (11.6-16.5); WHITE BLOOD COUNT 14.3 X10^3/uL (3.6-10.0)
[2020-12-04 06:04] LABS: ALANINE AMINOTRANSFERASE 50 Units/L (12-78); ALBUMIN 1.4 g/dL (3.4-5.0); ALKALINE PHOSPHATASE 94 Units/L (46-116); ASPARTATE AMINO TRANSFERASE 30 Units/L (15-37); BLOOD UREA NITROGEN 33 mg/dL (7-18); CALCIUM 6.3 mg/dL (8.5-10.1); CARBON DIOXIDE 25.7 mmol/L (21-32); CHLORIDE 109 mmol/L (98-107); COR CA(FOR HYPOALB) 8.4 mg/dL (8.5-10.1); COR NA(FOR HYPERGLY) 144 mmol/L (136-145); CREATININE 0.91 mg/dL (0.70-1.30); SODIUM 142 mmol/L (136-145); TOTAL PROTEIN 4.6 g/dL (6.4-8.2); eGFR NON BLACK RACES > 60 (>60)
[2020-12-04 06:20] LABS: PLATELET MORPHOLOGY COMMENT NORMAL (NORMAL)
--- NOTE | 2020-12-04 06:49 | RAD ---
HISTORYINCREASING OXYGEN REQUIREMENTSSTUDYCHEST, 1 ZTWGHGAMMXCUQQ64/14/2021.TECHNIQUEAP view of the chestFINDINGSCardiac and mediastinal contours are within normal limits. No significant change in bilateral airspace and interstitial opacities. No definite pleural effusion or pneumothorax.IMPRESSIONNo significant change.Electronically signed by: Loco Whalen (Dec 04, 2020 06:48:16)
[2020-12-04] MEDS: BUTT CREAM (COMPOUND) TOP PRN ×2 (07:00→17:00)
[2020-12-04] MEDS: PULMICORT NEB TX 0.5 MG NEB SCH ×2 (08:30→20:43)
[2020-12-04] MEDS: BROVANA IN SCH ×2 (08:30→20:43)
[2020-12-04] MEDS: TYGACIL 50 MG VIAL 50 MG in NS 100 ML IV 100 ML IV SCH ×2 (09:24→22:30)
[2020-12-04] MEDS: THIAMINE HCL INJ IVP SCH ×2 (09:32→22:35)
[2020-12-04] MEDS: PROTONIX INJ 40 MG VIAL IVP SCH ×2 (09:32→22:30)
[2020-12-04] MEDS: AVELOX IV 400 MG/250 ML BAG 400 MG/250 ML PIGGYBACK IV SCH (10:27)
[2020-12-04] MEDS ORDERED: D5W 250 ML IV 250 ML IV ONE (10:48)
[2020-12-04] MEDS ORDERED: BENADRYL INJ 50 MG VIAL IVP ONE (11:00)
[2020-12-04] MEDS: AMBISOME IV SCH (11:51)
[2020-12-04] MEDS: D5W IV SCH (11:51)
[2020-12-04] MEDS: ACTOS PO SCH (14:31)
[2020-12-04] MEDS: AVODART PO SCH (14:31)
[2020-12-04] MEDS: COREG TAB 12.5 MG PO SCH (14:32)
[2020-12-04] MEDS: GLUCOPHAGE XR 24-HR PO SCH (14:33)
[2020-12-04] MEDS: ELIQUIS PO SCH (14:33)
[2020-12-04] MEDS: PEPCID TAB 40 MG PO SCH (14:34)
[2020-12-04] MEDS: LIPITOR TAB 80 MG PO SCH (14:34)
[2020-12-04] MEDS: VITAMIN A PO SCH (14:35)
[2020-12-04] MEDS: VITAMIN D3 125 mcg (5,000 UNITS) PO SCH (14:35)
[2020-12-04] MEDS: ZINC SULFATE PO SCH (14:36)
[2020-12-04 15:19] LABS: CREATININE 0.83 mg/dL (0.70-1.30); VANCOMYCIN,TROUGH 19.3 ug/mL (15-20)
[2020-12-04] MEDS ORDERED: BRIDION ONE (17:47)
[2020-12-04] MEDS ORDERED: ZEMURON 50 MG VIAL ONE ×2 (17:47→18:00)
[2020-12-04] MEDS ORDERED: DIPRIVAN PREMIX 1 GRAM IV 1,000 MG/100 ML VIAL ONE (17:55)
[2020-12-04] MEDS ORDERED: DIPRIVAN VIAL ONE (18:00)
[2020-12-04] MEDS: NORCURON INJ 10 MG VIAL 50 MG in NS 50 ML IV 50 ML IV PRN (19:00)
--- NOTE | 2020-12-04 19:19 | RAD ---
HISTORYET TUBE PLACEMENT, COVID PNEUMONIA Relevant Clinical InformationSTUDYCHEST, 1 [id number]/15/2021FINDINGSThe trachea is midline. Endotracheal tube tip approximately 4 cm above the conchita. The cardiac silhouette is unremarkable. Diffuse bilateral airspace disease, unchanged. No pneumothorax.. The bony thorax is unremarkable.IMPRESSIONEndotracheal tube in satisfactory position.Diffuse bilateral airspace and interstitial opacities unchanged.Electronically signed by: Tomas Bolden (Dec 04, 2020 19:17:27)
[2020-12-04 19:39] LABS: ABG ALLEN TEST POS; ABG BASE EXCESS -2.3 mmol/L (-2.0-2.0); ABG HCO3 24.6 mmol/L (22-26)
[2020-12-04 19:57] LABS: BILIRUBIN,URINE NEGATIVE (NEGATIVE); BLOOD/HEMOGLOBIN,URINE NEGATIVE (NEGATIVE); GLUCOSE, URINE NEGATIVE (NEGATIVE); KETONES,URINE 1+ (NEGATIVE); LEUKOCYTE ESTERASE ,URINE NEGATIVE (NEGATIVE); NITRITES,URINE NEGATIVE (NEGATIVE); PROTEIN,URINE 2+ (NEGATIVE); UROBILINOGEN,URINE NORMAL (NORMAL)
[2020-12-04 20:05] LABS: APPEARANCE,URINE CLEAR (CLEAR); COLOR,URINE YELLOW (YELLOW)
[2020-12-04 20:06] LABS: BACTERIA,URINE TRACE /HPF (NEGATIVE); RBC,URINE 0-2 /HPF (0-3); SQUAMOUS EPITHELIAL CELL,UR RARE /HPF (NEGATIVE)
[2020-12-04] MEDS: DIPRIVAN PREMIX 1 GRAM IV 1,000 MG/100 ML VIAL IV PRN ×2 (20:55→22:12)
[2020-12-04] MEDS: LACRI-LUBE S.O.P. AFFEYE SCH (22:30)
[2020-12-05] MEDS: COREG TAB 12.5 MG PO SCH ×3 (00:53→21:00)
[2020-12-05 01:22] LABS: ABG BASE EXCESS -3.7 mmol/L (-2.0-2.0); ABG HCO3 26.4 mmol/L (22-26)
[2020-12-05] MEDS: ELIQUIS PO SCH ×3 (01:22→21:00)
[2020-12-05] MEDS: GLUCOPHAGE XR 24-HR PO SCH ×3 (01:23→21:00)
[2020-12-05] MEDS: MELATONIN PO SCH (01:23)
[2020-12-05 01:24] LABS: ABG ALLEN TEST POS
[2020-12-05] MEDS: NORCURON INJ 10 MG VIAL 50 MG in NS 50 ML IV 50 ML IV PRN ×2 (03:00→13:41)
[2020-12-05] MEDS: CYTOTEC PO SCH ×4 (03:11→21:00)
[2020-12-05] MEDS: PEPCID TAB 40 MG PO SCH (03:11)
[2020-12-05] MEDS: ZINC SULFATE PO SCH ×3 (03:11→21:00)
[2020-12-05] MEDS: NS 1/2 1000 ML IV 1,000 ML IV SCH ×4 (03:14→16:10)
[2020-12-05] MEDS: DIPRIVAN PREMIX 1 GRAM IV 1,000 MG/100 ML VIAL IV PRN ×2 (03:20→10:19)
[2020-12-05] MEDS: ASCORBIC ACID INJ MULTI-DOSE VIAL 1,500 MG in NS 100 ML IV 100 ML IV SCH ×4 (03:46→21:00)
[2020-12-05] MEDS: SOLU-Medrol 125 MG VIAL IVP SCH ×4 (03:46→21:00)
[2020-12-05] MEDS ORDERED: NS 1/2 1000 ML IV 1,000 ML IV ONE (05:03)
[2020-12-05 05:07] LABS: ABG BASE EXCESS -2.7 mmol/L (-2.0-2.0); ABG HCO3 24.1 mmol/L (22-26)
[2020-12-05 05:10] LABS: ABG ALLEN TEST POS
--- NOTE | 2020-12-05 06:17 | RAD ---
HISTORYCOVID PNEUMONIA, VENTILATOR DEPENDENCESTUDYCHEST, 1 [id number]/15/2021.TECHNIQUEAP view of the chestFINDINGSET tube in good position. Cardiac and mediastinal contours are within normal limits. No significant change in bilateral airspace and interstitial opacities. No definite pleural effusion or pneumothorax.IMPRESSIONNo significant change.Electronically signed by: Loco Whalen (Dec 05, 2020 06:15:31)
[2020-12-05 06:40] LABS: BASOPHILS # (AUTO) 0.1 X10^3/uL (0.0-0.1); BASOPHILS % (AUTO) 0.5 % (0.2-1.0); HEMOGLOBIN 10.3 g/dL (13.5-18.0); LYMPHOCYTES # (AUTO) 0.1 X10^3/uL (1.3-2.9); LYMPHOCYTES % (AUTO) 0.9 % (21.0-51.0); MEAN CORPUSCULAR HEMOGLOBIN 31.5 pg (27.0-34.0); MEAN CORPUSCULAR HGB CONC 34.4 g/dL (33.0-35.0); MEAN CORPUSCULAR VOLUME 91.6 fL (80.0-100.0); MEAN PLATELET VOLUME 9.3 fL (7.4-11.0); MONOCYTES # (AUTO) 0.1 x10^3/uL (0.3-0.8); MONOCYTES % (AUTO) 1.1 % (0.0-13.0); NEUTROPHILS # (AUTO) 11.1 x10^3/uL (2.2-4.8); NEUTROPHILS % (AUTO) 97.5 % (42.0-75.0); PLATELET COUNT 63 X10^3/uL (150.0-450.0); RED BLOOD COUNT 3.28 X10^6/uL (4.7-6.0); RED CELL DISTRIBUTION WIDTH 15.1 % (11.6-16.5); WHITE BLOOD COUNT 11.4 X10^3/uL (3.6-10.0)
[2020-12-05 06:42] LABS: ALANINE AMINOTRANSFERASE 46 Units/L (12-78); ALBUMIN 1.2 g/dL (3.4-5.0); ALKALINE PHOSPHATASE 76 Units/L (46-116); ASPARTATE AMINO TRANSFERASE 24 Units/L (15-37); BLOOD UREA NITROGEN 43 mg/dL (7-18); CHLORIDE 110 mmol/L (98-107); COR NA(FOR HYPERGLY) 144 mmol/L (136-145); CREATININE 1.07 mg/dL (0.70-1.30); SODIUM 142 mmol/L (136-145); eGFR NON BLACK RACES > 60 (>60)
[2020-12-05] MEDS: VANCOMYCIN IV *PREMIX 1 G/200 ML BAG 1 G/200 ML PIGGYBACK IV SCH ×4 (06:45→22:00)
[2020-12-05 07:09] LABS: CALCIUM 6.1 mg/dL (8.5-10.1); COR CA(FOR HYPOALB) 8.3 mg/dL (8.5-10.1)
[2020-12-05 07:33] LABS: PLATELET MORPHOLOGY COMMENT NORMAL (NORMAL)
[2020-12-05] MEDS: LACRI-LUBE S.O.P. AFFEYE SCH ×2 (08:12→21:00)
[2020-12-05] MEDS: BROVANA IN SCH ×2 (08:20→21:09)
[2020-12-05] MEDS: PULMICORT NEB TX 0.5 MG NEB SCH ×2 (08:20→21:09)
[2020-12-05] MEDS: PROTONIX INJ 40 MG VIAL IVP SCH ×2 (08:51→21:00)
[2020-12-05] MEDS: THIAMINE HCL INJ IVP SCH ×2 (08:51→21:00)
[2020-12-05] MEDS ORDERED: LR 1000 ML IV 1,000 ML IV ONE (09:03)
[2020-12-05] MEDS: TYGACIL 50 MG VIAL 50 MG in NS 100 ML IV 100 ML IV SCH ×2 (09:40→20:00)
[2020-12-05] MEDS: AVELOX IV 400 MG/250 ML BAG 400 MG/250 ML PIGGYBACK IV SCH (09:42)
[2020-12-05] MEDS: AVODART PO SCH (09:58)
[2020-12-05] MEDS: ACTOS PO SCH (09:58)
[2020-12-05] MEDS: LIPITOR TAB 80 MG PO SCH (09:59)
[2020-12-05] MEDS: VITAMIN D3 125 mcg (5,000 UNITS) PO SCH (09:59)
[2020-12-05] MEDS: VSL#3 PO SCH ×2 (10:00→11:00)
[2020-12-05] MEDS: VITAMIN A PO SCH (10:00)
--- NOTE | 2020-12-05 10:08 | RAD ---
HISTORYNG TUBE PLACEMENTSTUDYKUB x-ray one viewCOMPARISONX-ray 12/05/2020FINDINGSNasogastric tube appears to be in the region of the body of the stomach. Diffuse lung infiltrates are seen. No bowel dilation is seen.IMPRESSIONNasogastric tube tip appears to be in the region of the body of the stomach.Electronically signed by: Buddy Marcano (Dec 05, 2020 10:05:16)
[2020-12-05] MEDS ORDERED: LASIX IVP ONE (10:32)
[2020-12-05] MEDS: AMBISOME IV SCH (10:54)
[2020-12-05] MEDS: D5W IV SCH (10:54)
[2020-12-05] MEDS ORDERED: AFRIN NASAL SPRAY SCH (11:00)
[2020-12-05] MEDS ORDERED: BENADRYL INJ 50 MG VIAL IVP ONE (12:58)
[2020-12-05] MEDS: PEPCID 20 MG IV PREMIX* 20 MG/50 ML BAG IV SCH (21:00)
[2020-12-05 22:07] LABS: BLOOD UREA NITROGEN 45 mg/dL (7-18); CARBON DIOXIDE 29.4 mmol/L (21-32); CHLORIDE 109 mmol/L (98-107); COR NA(FOR HYPERGLY) 145 mmol/L (136-145); CREATININE 1.35 mg/dL (0.70-1.30); SODIUM 143 mmol/L (136-145); eGFR NON BLACK RACES 55 (>60)
[2020-12-05 22:17] LABS: CALCIUM 5.9 mg/dL (8.5-10.1)
[2020-12-06] MEDS: MELATONIN PO SCH ×2 (00:31→21:41)
[2020-12-06] MEDS: ASCORBIC ACID INJ MULTI-DOSE VIAL 1,500 MG in NS 100 ML IV 100 ML IV SCH ×4 (03:00→21:40)
[2020-12-06] MEDS: SOLU-Medrol 125 MG VIAL IVP SCH (03:00)
[2020-12-06 04:41] LABS: ABG BASE EXCESS 1.4 mmol/L (-2.0-2.0); ABG HCO3 27.2 mmol/L (22-26)
[2020-12-06 04:42] LABS: ABG ALLEN TEST POS
[2020-12-06] MEDS: VANCOMYCIN IV *PREMIX 1 G/200 ML BAG 1 G/200 ML PIGGYBACK IV SCH ×2 (06:00→15:11)
[2020-12-06] MEDS: CYTOTEC PO SCH ×3 (06:00→21:43)
[2020-12-06 06:01] LABS: BASOPHILS # (AUTO) 0.1 X10^3/uL (0.0-0.1); BASOPHILS % (AUTO) 0.5 % (0.2-1.0); HEMATOCRIT 30.5 % (42.0-54.0); HEMOGLOBIN 10.7 g/dL (13.5-18.0); LYMPHOCYTES # (AUTO) 0.2 X10^3/uL (1.3-2.9); LYMPHOCYTES % (AUTO) 1.9 % (21.0-51.0); MEAN CORPUSCULAR HEMOGLOBIN 31.4 pg (27.0-34.0); MEAN CORPUSCULAR VOLUME 89.8 fL (80.0-100.0); MEAN PLATELET VOLUME 9.3 fL (7.4-11.0); MONOCYTES # (AUTO) 0.2 x10^3/uL (0.3-0.8); MONOCYTES % (AUTO) 1.5 % (0.0-13.0); NEUTROPHILS # (AUTO) 10.1 x10^3/uL (2.2-4.8); NEUTROPHILS % (AUTO) 96.1 % (42.0-75.0); PLATELET COUNT 60 X10^3/uL (150.0-450.0); RED BLOOD COUNT 3.39 X10^6/uL (4.7-6.0); RED CELL DISTRIBUTION WIDTH 15.1 % (11.6-16.5); WHITE BLOOD COUNT 10.5 X10^3/uL (3.6-10.0)
[2020-12-06 06:14] LABS: ALANINE AMINOTRANSFERASE 45 Units/L (12-78); ALBUMIN 1.3 g/dL (3.4-5.0); ALKALINE PHOSPHATASE 74 Units/L (46-116); ASPARTATE AMINO TRANSFERASE 17 Units/L (15-37); BLOOD UREA NITROGEN 45 mg/dL (7-18); CHLORIDE 110 mmol/L (98-107); COR CA(FOR HYPOALB) 8.1 mg/dL (8.5-10.1); COR NA(FOR HYPERGLY) 146 mmol/L (136-145); CREATININE 1.32 mg/dL (0.70-1.30); SODIUM 144 mmol/L (136-145); TOTAL PROTEIN 4.1 g/dL (6.4-8.2); eGFR NON BLACK RACES 57 (>60)
[2020-12-06 06:21] LABS: CALCIUM 5.9 mg/dL (8.5-10.1)
--- NOTE | 2020-12-06 06:43 | RAD ---
HISTORYCOVID PNEUMONIA, VENTILATOR DEPENDENCESTUDYCHEST, 1 VIEWCOMPARISONOne day prior.TECHNIQUEAP view of the chestFINDINGSET tube in good position. NG tube courses below the visualized field of view. Cardiac and mediastinal contours are within normal limits. No significant change in bilateral airspace and interstitial opacities. No definite pleural effusion or pneumothorax.IMPRESSIONNo significant change.Electronically signed by: Loco Whalen (Dec 06, 2020 06:41:52)
[2020-12-06 07:01] LABS: BAND NEUTROPHILS % 1 % (0-10)
[2020-12-06 07:02] LABS: PLATELET MORPHOLOGY COMMENT NORMAL (NORMAL)
[2020-12-06] MEDS: NS 1/2 1000 ML IV 1,000 ML IV SCH ×4 (07:06→18:03)
[2020-12-06] MEDS: BROVANA IN SCH ×2 (08:25→21:05)
[2020-12-06] MEDS: PULMICORT NEB TX 0.5 MG NEB SCH ×2 (08:25→21:05)
[2020-12-06] MEDS ORDERED: LR 1000 ML IV 1,000 ML IV ONE (08:26)
[2020-12-06] MEDS: NORCURON INJ 10 MG VIAL 50 MG in NS 50 ML IV 50 ML IV PRN (08:44)
[2020-12-06] MEDS: THIAMINE HCL INJ IVP SCH ×2 (09:40→21:42)
[2020-12-06] MEDS: PROTONIX INJ 40 MG VIAL IVP SCH ×2 (09:40→21:42)
[2020-12-06] MEDS: LACRI-LUBE S.O.P. AFFEYE SCH ×2 (09:41→21:41)
[2020-12-06] MEDS: ACTOS PO SCH (10:06)
[2020-12-06] MEDS: AVODART PO SCH (10:06)
[2020-12-06] MEDS: VSL#3 PO SCH (10:07)
[2020-12-06] MEDS: VITAMIN A PO SCH (10:07)
[2020-12-06] MEDS: ZINC SULFATE PO SCH ×2 (10:07→21:42)
[2020-12-06] MEDS: VITAMIN D3 125 mcg (5,000 UNITS) PO SCH (10:07)
[2020-12-06] MEDS: LIPITOR TAB 80 MG PO SCH (10:08)
[2020-12-06] MEDS: ELIQUIS PO SCH ×2 (10:08→21:41)
[2020-12-06] MEDS: GLUCOPHAGE XR 24-HR PO SCH ×2 (10:08→21:41)
[2020-12-06] MEDS: PEPCID 20 MG IV PREMIX* 20 MG/50 ML BAG IV SCH ×2 (10:09→21:42)
[2020-12-06] MEDS: ALBUMIN HUMAN 25%- 100 ML 100 ML IV SCH (10:17)
[2020-12-06] MEDS: AVELOX IV 400 MG/250 ML BAG 400 MG/250 ML PIGGYBACK IV SCH (10:44)
[2020-12-06] MEDS: TYGACIL 50 MG VIAL 50 MG in NS 100 ML IV 100 ML IV SCH ×2 (11:12→20:25)
[2020-12-06 12:06] LABS: ABG BASE EXCESS 2.1 mmol/L (-2.0-2.0); ABG HCO3 27.8 mmol/L (22-26)
[2020-12-06] MEDS: DIPRIVAN PREMIX 1 GRAM IV 1,000 MG/100 ML VIAL IV PRN ×2 (13:08→22:00)
[2020-12-06] MEDS: SOLU-Medrol 40 MG VIAL IVP SCH ×2 (15:04→21:42)
[2020-12-06 15:06] LABS: CREATININE 1.22 mg/dL (0.70-1.30)
[2020-12-06 15:08] LABS: VANCOMYCIN,TROUGH 29.6 ug/mL (15-20)
[2020-12-06] MEDS ORDERED: NS 1/2 1000 ML IV 1,000 ML IV ONE (15:41)
[2020-12-06] MEDS: BENADRYL INJ 50 MG VIAL IVP PRN (15:55)
[2020-12-06] MEDS: D5W IV SCH (16:22)
[2020-12-06] MEDS: AMBISOME IV SCH (16:22)
[2020-12-06] MEDS: COREG TAB 6.25 MG PO SCH (21:41)
[2020-12-07] MEDS: NS 1/2 1000 ML IV 1,000 ML IV SCH ×2 (01:00→09:10)
[2020-12-07] MEDS: ASCORBIC ACID INJ MULTI-DOSE VIAL 1,500 MG in NS 100 ML IV 100 ML IV SCH ×4 (02:20→20:11)
[2020-12-07] MEDS: SOLU-Medrol 40 MG VIAL IVP SCH ×4 (02:20→20:13)
[2020-12-07] MEDS: NORCURON INJ 10 MG VIAL 50 MG in NS 50 ML IV 50 ML IV PRN (03:35)
[2020-12-07 05:33] LABS: BASOPHILS # (AUTO) 0.1 X10^3/uL (0.0-0.1); HEMATOCRIT 28.7 % (42.0-54.0); LYMPHOCYTES # (AUTO) 0.2 X10^3/uL (1.3-2.9); LYMPHOCYTES % (AUTO) 2.1 % (21.0-51.0); MEAN CORPUSCULAR HEMOGLOBIN 31.2 pg (27.0-34.0); MEAN CORPUSCULAR HGB CONC 34.8 g/dL (33.0-35.0); MEAN CORPUSCULAR VOLUME 89.7 fL (80.0-100.0); MEAN PLATELET VOLUME 9.8 fL (7.4-11.0); MONOCYTES # (AUTO) 0.2 x10^3/uL (0.3-0.8); MONOCYTES % (AUTO) 2.5 % (0.0-13.0); NEUTROPHILS # (AUTO) 7.3 x10^3/uL (2.2-4.8); NEUTROPHILS % (AUTO) 94.4 % (42.0-75.0); PLATELET COUNT 50 X10^3/uL (150.0-450.0); RED CELL DISTRIBUTION WIDTH 14.8 % (11.6-16.5); WHITE BLOOD COUNT 7.7 X10^3/uL (3.6-10.0)
[2020-12-07] MEDS: CYTOTEC PO SCH ×3 (05:39→21:19)
[2020-12-07 05:42] LABS: ALANINE AMINOTRANSFERASE 43 Units/L (12-78); ALBUMIN 1.7 g/dL (3.4-5.0); ALKALINE PHOSPHATASE 71 Units/L (46-116); ASPARTATE AMINO TRANSFERASE 17 Units/L (15-37); BLOOD UREA NITROGEN 51 mg/dL (7-18); CALCIUM 6.2 mg/dL (8.5-10.1); CARBON DIOXIDE 27.9 mmol/L (21-32); CHLORIDE 111 mmol/L (98-107); COR NA(FOR HYPERGLY) 147 mmol/L (136-145); CREATININE 1.35 mg/dL (0.70-1.30); SODIUM 145 mmol/L (136-145); TOTAL PROTEIN 4.1 g/dL (6.4-8.2); eGFR NON BLACK RACES 55 (>60)
[2020-12-07] MEDS ORDERED: NS 1/2 1000 ML IV 1,000 ML IV ONE (06:03)
[2020-12-07] MEDS: DIPRIVAN PREMIX 1 GRAM IV 1,000 MG/100 ML VIAL IV PRN ×3 (06:05→21:19)
[2020-12-07 06:17] LABS: PLATELET MORPHOLOGY COMMENT NORMAL (NORMAL)
--- NOTE | 2020-12-07 07:11 | RAD ---
HISTORYCOVID PNEUMONIA, VENTSTUDYCHEST x-ray, 1 VIEWCOMPARISONX-ray 12/06/2020FINDINGSEndotracheal tube terminates 5.2 cm above the conchita. Enteric tube passes into the stomach. Heart is normal in size. Bilateral lung infiltrates are similar to prior study. No pneumothorax or pleural effusion is seen.IMPRESSIONAppearance of the chest is unchanged.Electronically signed by: Buddy Marcano (Dec 07, 2020 07:09:20)
[2020-12-07] MEDS ORDERED: PHARMACY COMMENT IV ONE (08:00)
[2020-12-07] MEDS: TYGACIL 50 MG VIAL 50 MG in NS 100 ML IV 100 ML IV SCH ×2 (08:04→20:13)
[2020-12-07] MEDS: PULMICORT NEB TX 0.5 MG NEB SCH ×2 (08:20→21:41)
[2020-12-07] MEDS: BROVANA IN SCH ×2 (08:20→21:41)
[2020-12-07 08:53] LABS: CREATININE 1.43 mg/dL (0.70-1.30); VANCOMYCIN,TROUGH 19.6 ug/mL (15-20)
[2020-12-07] MEDS: VITAMIN A PO SCH (09:02)
[2020-12-07] MEDS: ACTOS PO SCH (09:02)
[2020-12-07] MEDS: VITAMIN D3 125 mcg (5,000 UNITS) PO SCH (09:02)
[2020-12-07] MEDS: ZINC SULFATE PO SCH ×2 (09:03→20:11)
[2020-12-07] MEDS: VSL#3 PO SCH (09:11)
[2020-12-07] MEDS: THIAMINE HCL INJ IVP SCH ×2 (09:11→20:14)
[2020-12-07] MEDS: PROTONIX INJ 40 MG VIAL IVP SCH ×2 (09:12→20:12)
[2020-12-07] MEDS: GLUCOPHAGE XR 24-HR PO SCH ×2 (09:13→20:11)
[2020-12-07] MEDS: LACRI-LUBE S.O.P. AFFEYE SCH ×2 (09:13→20:13)
[2020-12-07] MEDS: LIPITOR TAB 80 MG PO SCH (09:13)
[2020-12-07] MEDS: ELIQUIS PO SCH ×2 (09:14→20:11)
[2020-12-07] MEDS: COREG TAB 6.25 MG PO SCH ×2 (09:14→20:12)
[2020-12-07] MEDS: AVODART PO SCH (09:15)
[2020-12-07] MEDS: AVELOX IV 400 MG/250 ML BAG 400 MG/250 ML PIGGYBACK IV SCH (09:15)
[2020-12-07] MEDS: PEPCID 20 MG IV PREMIX* 20 MG/50 ML BAG IV SCH ×2 (10:08→20:13)
[2020-12-07] MEDS ORDERED: LR 1000 ML IV 1,000 ML IV ONE (10:28)
[2020-12-07 10:29] LABS: ABG ALLEN TEST POSITIVE
[2020-12-07] MEDS: ALBUMIN HUMAN 25%- 100 ML 100 ML IV SCH (10:31)
[2020-12-07] MEDS: D5W IV SCH (11:33)
[2020-12-07] MEDS: AMBISOME IV SCH (11:33)
[2020-12-07] MEDS: BENADRYL INJ 50 MG VIAL IVP PRN (11:33)
[2020-12-07] MEDS: VANCOMYCIN IV *PREMIX 1 G/200 ML BAG 1 G/200 ML PIGGYBACK IV SCH ×2 (12:39→20:14)
[2020-12-07 14:41] LABS: ABG BASE EXCESS 0.1 mmol/L (-2.0-2.0); ABG HCO3 26.4 mmol/L (22-26)
[2020-12-07 14:42] LABS: ABG ALLEN TEST POSITIVE
[2020-12-07] MEDS ORDERED: NS 250 ML IV 250 ML IV ONE (15:55)
[2020-12-07] MEDS: LR 1000 ML IV 1,000 ML IV SCH ×2 (16:01→20:10)
[2020-12-07] MEDS: MELATONIN PO SCH (20:12)
[2020-12-08] MEDS: NORCURON INJ 10 MG VIAL 50 MG in NS 50 ML IV 50 ML IV PRN (01:48)
[2020-12-08] MEDS: ASCORBIC ACID INJ MULTI-DOSE VIAL 1,500 MG in NS 100 ML IV 100 ML IV SCH ×4 (02:16→20:07)
[2020-12-08] MEDS: SOLU-Medrol 40 MG VIAL IVP SCH ×4 (02:17→20:07)
[2020-12-08] MEDS: LR 1000 ML IV 1,000 ML IV SCH ×4 (03:07→19:41)
[2020-12-08] MEDS: MORPHINE SULFATE INJ 2 MG INJ IVP PRN ×2 (04:40→20:23)
[2020-12-08] MEDS: COREG TAB 6.25 MG PO SCH ×3 (04:42→20:08)
[2020-12-08 05:11] LABS: ABG BASE EXCESS -0.6 mmol/L (-2.0-2.0); ABG HCO3 26.9 mmol/L (22-26)
[2020-12-08 05:12] LABS: ABG ALLEN TEST POS
[2020-12-08 05:40] LABS: BASOPHILS % (AUTO) 0.2 % (0.2-1.0); HEMATOCRIT 30.6 % (42.0-54.0); HEMOGLOBIN 10.6 g/dL (13.5-18.0); LYMPHOCYTES # (AUTO) 0.2 X10^3/uL (1.3-2.9); LYMPHOCYTES % (AUTO) 3.1 % (21.0-51.0); MEAN CORPUSCULAR HEMOGLOBIN 31.2 pg (27.0-34.0); MEAN CORPUSCULAR HGB CONC 34.7 g/dL (33.0-35.0); MEAN PLATELET VOLUME 9.5 fL (7.4-11.0); MONOCYTES # (AUTO) 0.2 x10^3/uL (0.3-0.8); MONOCYTES % (AUTO) 2.6 % (0.0-13.0); NEUTROPHILS # (AUTO) 7.5 x10^3/uL (2.2-4.8); NEUTROPHILS % (AUTO) 94.1 % (42.0-75.0); PLATELET COUNT 53 X10^3/uL (150.0-450.0)
[2020-12-08] MEDS: DIPRIVAN PREMIX 1 GRAM IV 1,000 MG/100 ML VIAL IV PRN ×3 (05:45→18:20)
[2020-12-08] MEDS: CYTOTEC PO SCH ×3 (05:54→21:01)
[2020-12-08 06:01] LABS: ALANINE AMINOTRANSFERASE 48 Units/L (12-78); ALKALINE PHOSPHATASE 91 Units/L (46-116); ASPARTATE AMINO TRANSFERASE 22 Units/L (15-37); BLOOD UREA NITROGEN 57 mg/dL (7-18); CALCIUM 6.3 mg/dL (8.5-10.1); CARBON DIOXIDE 27.3 mmol/L (21-32); CHLORIDE 112 mmol/L (98-107); COR CA(FOR HYPOALB) 7.9 mg/dL (8.5-10.1); COR NA(FOR HYPERGLY) 148 mmol/L (136-145); CREATININE 1.37 mg/dL (0.70-1.30); SODIUM 146 mmol/L (136-145); TOTAL PROTEIN 4.5 g/dL (6.4-8.2); eGFR NON BLACK RACES 54 (>60)
[2020-12-08 06:06] LABS: CREATINE KINASE MB 2.7 ng/mL (0-4.0); TROPONIN I 0.21 ng/mL (0-1.5)
[2020-12-08 06:18] LABS: PLATELET MORPHOLOGY COMMENT NORMAL (NORMAL)
[2020-12-08] MEDS: TYGACIL 50 MG VIAL 50 MG in NS 100 ML IV 100 ML IV SCH ×2 (07:51→20:06)
[2020-12-08] MEDS: ACTOS PO SCH (08:06)
[2020-12-08] MEDS: ALBUMIN HUMAN 25%- 100 ML 100 ML IV SCH (08:11)
[2020-12-08] MEDS: ZINC SULFATE PO SCH ×2 (08:11→20:08)
[2020-12-08] MEDS: ELIQUIS PO SCH ×2 (08:12→20:08)
[2020-12-08] MEDS: AVELOX IV 400 MG/250 ML BAG 400 MG/250 ML PIGGYBACK IV SCH (08:12)
[2020-12-08] MEDS: AVODART PO SCH (08:12)
[2020-12-08] MEDS: VITAMIN A PO SCH (08:13)
[2020-12-08] MEDS: GLUCOPHAGE XR 24-HR PO SCH ×2 (08:13→20:08)
[2020-12-08] MEDS: VANCOMYCIN IV *PREMIX 1 G/200 ML BAG 1 G/200 ML PIGGYBACK IV SCH (08:13)
[2020-12-08] MEDS: VITAMIN D3 125 mcg (5,000 UNITS) PO SCH (08:13)
[2020-12-08] MEDS: VSL#3 PO SCH (08:13)
[2020-12-08] MEDS: LIPITOR TAB 80 MG PO SCH (08:14)
[2020-12-08] MEDS: LACRI-LUBE S.O.P. AFFEYE SCH ×2 (08:14→20:09)
[2020-12-08] MEDS: PEPCID 20 MG IV PREMIX* 20 MG/50 ML BAG IV SCH ×2 (08:14→20:06)
[2020-12-08] MEDS: PROTONIX INJ 40 MG VIAL IVP SCH ×2 (08:14→20:07)
[2020-12-08] MEDS: THIAMINE HCL INJ IVP SCH ×2 (08:15→20:07)
[2020-12-08] MEDS ORDERED: LANOXIN INJ ONE ×2 (08:28→08:59)
[2020-12-08] MEDS: LANOXIN INJ IVP ONE ×2 (08:30→08:56)
--- NOTE | 2020-12-08 08:39 | RAD ---
HISTORYCOVID PNEUMONIA, VENTSTUDYCHEST x-ray, 1 VIEWCOMPARISONX-ray 12/07/2020FINDINGSEndotracheal tube terminates 5.5 cm above the conchita. Enteric tube passes into the stomach. Heart is normal size. Prominent diffuse bilateral lung infiltrates are unchanged. Left CP angle is excluded. No pneumothorax or pleural effusion is seen.IMPRESSIONAppearance of the chest is unchanged.Electronically signed by: Buddy Marcano (Dec 08, 2020 08:37:58)
[2020-12-08] MEDS: PULMICORT NEB TX 0.5 MG NEB SCH (09:05)
[2020-12-08] MEDS: BROVANA IN SCH ×2 (09:05→20:10)
[2020-12-08] MEDS ORDERED: LANOXIN INJ IVP ONE ×3 (09:15→21:00)
[2020-12-08] MEDS ORDERED: ZYVOX 600MG IV 600 MG/300 ML BAG IV STA (10:28)
[2020-12-08] MEDS: ZYVOX 600MG IV 600 MG/300 ML BAG IV SCH ×2 (10:29→20:08)
[2020-12-08 10:30] LABS: CKMB % 0.9 % (<4); CREATINE KINASE MB 2.3 ng/mL (0-4.0); TROPONIN I 0.19 ng/mL (0-1.5)
[2020-12-08] MEDS ORDERED: ZYVOX 600MG IV 600 MG/300 ML BAG IV ONE ×2 (10:32→19:18)
[2020-12-08] MEDS ORDERED: AMBISOME IV SCH (11:00)
[2020-12-08] MEDS ORDERED: PHARMACY CONSULT - IVERMECTIN XX SCH (11:00)
[2020-12-08] MEDS ORDERED: D5W IV SCH (11:00)
[2020-12-08] MEDS: BENADRYL INJ 50 MG VIAL IVP PRN (11:46)
[2020-12-08] MEDS: IVERMECTIN NG SCH (14:18)
[2020-12-08 16:16] LABS: CREATINE KINASE MB 3.3 ng/mL (0-4.0); TROPONIN I 0.21 ng/mL (0-1.5)
[2020-12-08] MEDS: MELATONIN PO SCH (20:08)
[2020-12-09] MEDS: DIPRIVAN PREMIX 1 GRAM IV 1,000 MG/100 ML VIAL IV PRN ×4 (00:03→21:17)
[2020-12-09] MEDS: NORCURON INJ 10 MG VIAL 50 MG in NS 50 ML IV 50 ML IV PRN (01:43)
[2020-12-09] MEDS: MORPHINE SULFATE INJ 2 MG INJ IVP PRN (02:10)
[2020-12-09] MEDS: ASCORBIC ACID INJ MULTI-DOSE VIAL 1,500 MG in NS 100 ML IV 100 ML IV SCH ×4 (02:22→20:05)
[2020-12-09] MEDS: SOLU-Medrol 40 MG VIAL IVP SCH ×4 (02:22→20:06)
[2020-12-09] MEDS: LR 1000 ML IV 1,000 ML IV SCH ×3 (04:07→20:06)
[2020-12-09 06:04] LABS: ABG BASE EXCESS -1.3 mmol/L (-2.0-2.0)
[2020-12-09] MEDS: CYTOTEC PO SCH ×3 (06:35→21:16)
[2020-12-09 06:46] LABS: BASOPHILS % (AUTO) 0.2 % (0.2-1.0); HEMATOCRIT 26.3 % (42.0-54.0); LYMPHOCYTES # (AUTO) 0.1 X10^3/uL (1.3-2.9); LYMPHOCYTES % (AUTO) 4.3 % (21.0-51.0); MEAN CORPUSCULAR HEMOGLOBIN 31.2 pg (27.0-34.0); MEAN CORPUSCULAR HGB CONC 34.4 g/dL (33.0-35.0); MEAN CORPUSCULAR VOLUME 90.6 fL (80.0-100.0); MEAN PLATELET VOLUME 10.1 fL (7.4-11.0); MONOCYTES # (AUTO) 0.1 x10^3/uL (0.3-0.8); MONOCYTES % (AUTO) 2.1 % (0.0-13.0); NEUTROPHILS # (AUTO) 3.1 x10^3/uL (2.2-4.8); NEUTROPHILS % (AUTO) 93.4 % (42.0-75.0); PLATELET COUNT 36 X10^3/uL (150.0-450.0); WHITE BLOOD COUNT 3.3 X10^3/uL (3.6-10.0)
[2020-12-09 07:04] LABS: CALCIUM 6.3 mg/dL (8.5-10.1); CARBON DIOXIDE 25.6 mmol/L (21-32); COR CA(FOR HYPOALB) 7.9 mg/dL (8.5-10.1); CREATININE 1.65 mg/dL (0.70-1.30); MAGNESIUM 2.6 mg/dL (1.7-2.9); TOTAL PROTEIN 4.2 g/dL (6.4-8.2)
[2020-12-09 07:09] LABS: DIGOXIN 2.06 ng/mL (0.9-2)
[2020-12-09 07:40] LABS: BAND NEUTROPHILS % 6 % (0-10); PLATELET MORPHOLOGY COMMENT NORMAL (NORMAL)
[2020-12-09] MEDS ORDERED: NS 1000 ML 1,000 ML IV ONE ×2 (07:47→20:06)
[2020-12-09] MEDS: ZYVOX 600MG IV 600 MG/300 ML BAG IV SCH ×2 (08:03→20:08)
[2020-12-09] MEDS: THIAMINE HCL INJ IVP SCH ×2 (08:14→20:08)
[2020-12-09] MEDS: PROTONIX INJ 40 MG VIAL IVP SCH ×2 (08:15→20:07)
[2020-12-09] MEDS: TYGACIL 50 MG VIAL 50 MG in NS 100 ML IV 100 ML IV SCH (08:46)
[2020-12-09] MEDS: AVODART PO SCH (09:22)
[2020-12-09] MEDS: ACTOS PO SCH (09:23)
[2020-12-09] MEDS: COREG TAB 6.25 MG PO SCH ×2 (09:23→20:07)
[2020-12-09] MEDS: GLUCOPHAGE XR 24-HR PO SCH ×2 (09:24→20:07)
[2020-12-09] MEDS: ELIQUIS PO SCH ×2 (09:24→20:07)
[2020-12-09] MEDS: VITAMIN A PO SCH (09:25)
[2020-12-09] MEDS: LIPITOR TAB 80 MG PO SCH (09:25)
[2020-12-09] MEDS: ZINC SULFATE PO SCH ×2 (09:26→20:06)
[2020-12-09] MEDS: LACRI-LUBE S.O.P. AFFEYE SCH ×2 (09:26→20:08)
[2020-12-09] MEDS: VSL#3 PO SCH (09:26)
[2020-12-09] MEDS: VITAMIN D3 125 mcg (5,000 UNITS) PO SCH (09:27)
[2020-12-09] MEDS: BROVANA IN SCH ×2 (09:30→21:17)
[2020-12-09] MEDS: PULMICORT NEB TX 0.5 MG NEB SCH ×2 (09:30→21:17)
[2020-12-09] MEDS: ALBUMIN HUMAN 25%- 100 ML 100 ML IV SCH (09:49)
[2020-12-09] MEDS: PEPCID 20 MG IV PREMIX* 20 MG/50 ML BAG IV SCH ×2 (10:47→20:06)
[2020-12-09] MEDS: IVERMECTIN NG SCH (10:51)
[2020-12-09] MEDS: PERIACTIN TAB 4 MG PO SCH ×3 (10:52→21:16)
[2020-12-09] MEDS: ROCEPHIN VIAL 2 GRAMS 2 G in NS 100 ML IV + SPIKE MINIBAG* 100 ML IV SCH (11:41)
[2020-12-09 17:34] LABS: CALCIUM 6.2 mg/dL (8.5-10.1); CREATININE 1.79 mg/dL (0.70-1.30)
[2020-12-09] MEDS ORDERED: ELIQUIS ONE (19:17)
[2020-12-09] MEDS: MELATONIN PO SCH (20:06)
[2020-12-09] MEDS ORDERED: LASIX IVP ONE (20:07)
[2020-12-09] MEDS ORDERED: LASIX ONE (20:10)
[2020-12-09] MEDS ORDERED: NS 1000 ML 1,000 ML ONE (20:11)
[2020-12-10] MEDS: LR 1000 ML IV 1,000 ML IV SCH ×4 (02:07→21:30)
[2020-12-10] MEDS: ASCORBIC ACID INJ MULTI-DOSE VIAL 1,500 MG in NS 100 ML IV 100 ML IV SCH ×4 (02:07→21:30)
[2020-12-10] MEDS: SOLU-Medrol 40 MG VIAL IVP SCH ×4 (02:07→21:30)
[2020-12-10] MEDS: MORPHINE SULFATE INJ 2 MG INJ IVP PRN (04:00)
[2020-12-10] MEDS: CYTOTEC PO SCH ×3 (05:08→21:30)
[2020-12-10] MEDS: PERIACTIN TAB 4 MG PO SCH ×3 (05:08→21:30)
[2020-12-10 05:34] LABS: ABG BASE EXCESS -1.5 mmol/L (-2.0-2.0); ABG HCO3 26.8 mmol/L (22-26)
[2020-12-10 05:35] LABS: ABG ALLEN TEST POS
[2020-12-10] MEDS: DIPRIVAN PREMIX 1 GRAM IV 1,000 MG/100 ML VIAL IV PRN ×2 (06:05→14:25)
[2020-12-10 06:15] LABS: BASOPHILS % (AUTO) 0.2 % (0.2-1.0); HEMATOCRIT 23.9 % (42.0-54.0); HEMOGLOBIN 8.2 g/dL (13.5-18.0); LYMPHOCYTES # (AUTO) 0.1 X10^3/uL (1.3-2.9); MEAN CORPUSCULAR HEMOGLOBIN 30.9 pg (27.0-34.0); MEAN CORPUSCULAR HGB CONC 34.4 g/dL (33.0-35.0); MEAN CORPUSCULAR VOLUME 89.9 fL (80.0-100.0); MEAN PLATELET VOLUME 10.1 fL (7.4-11.0); MONOCYTES # (AUTO) 0.1 x10^3/uL (0.3-0.8); MONOCYTES % (AUTO) 3.6 % (0.0-13.0); NEUTROPHILS # (AUTO) 2.6 x10^3/uL (2.2-4.8); NEUTROPHILS % (AUTO) 92.2 % (42.0-75.0); PLATELET COUNT 31 X10^3/uL (150.0-450.0); RED BLOOD COUNT 2.66 X10^6/uL (4.7-6.0); RED CELL DISTRIBUTION WIDTH 15.1 % (11.6-16.5); WHITE BLOOD COUNT 2.9 X10^3/uL (3.6-10.0)
[2020-12-10 06:39] LABS: CALCIUM 6.1 mg/dL (8.5-10.1); CARBON DIOXIDE 26.5 mmol/L (21-32); COR CA(FOR HYPOALB) 7.7 mg/dL (8.5-10.1); CREATININE 1.96 mg/dL (0.70-1.30); DIGOXIN 1.41 ng/mL (0.9-2); TOTAL PROTEIN 4.1 g/dL (6.4-8.2)
--- NOTE | 2020-12-10 06:59 | RAD ---
HISTORYFollow-up COVID-19, respiratory failureSTUDYChest AP [id number]/19/2021FINDINGSThere is an endotracheal tube in good position. There is a nasoga stric tube coursing below the left hemidiaphragm. Its tip is not visible. Heart size is normal. Lungs are hypoinflated. Diffuse bilateral interstitial ground-glass and alveolar infiltrates are unchanged . No pleural effusion or pneumothorax identified. Bony thorax is unremarkable.IMPRESSIONNo change dif fuse bilateral interstitial, ground-glass, and alveolar infiltratesNo change hypo inflationElectronic ally signed by: IVY RAMIREZ (Dec 10, 2020 06:57:43)
[2020-12-10 07:26] LABS: BAND NEUTROPHILS % 4 % (0-10)
[2020-12-10 07:27] LABS: PLATELET MORPHOLOGY COMMENT NORMAL (NORMAL)
[2020-12-10] MEDS: ZYVOX 600MG IV 600 MG/300 ML BAG IV SCH ×2 (08:00→21:30)
[2020-12-10] MEDS: BROVANA IN SCH ×2 (09:00→21:00)
[2020-12-10] MEDS: PULMICORT NEB TX 0.5 MG NEB SCH ×2 (09:00→21:00)
[2020-12-10] MEDS: PROTONIX INJ 40 MG VIAL IVP SCH ×2 (09:06→21:30)
[2020-12-10] MEDS: THIAMINE HCL INJ IVP SCH ×2 (09:06→21:30)
[2020-12-10] MEDS: ACTOS PO SCH (09:29)
[2020-12-10] MEDS: COREG TAB 6.25 MG PO SCH ×2 (09:29→21:30)
[2020-12-10] MEDS: ZINC SULFATE PO SCH ×2 (09:31→21:30)
[2020-12-10] MEDS: ROCEPHIN VIAL 2 GRAMS 2 G in NS 100 ML IV + SPIKE MINIBAG* 100 ML IV SCH (09:31)
[2020-12-10] MEDS: VITAMIN A PO SCH (09:31)
[2020-12-10] MEDS: ELIQUIS PO SCH ×2 (09:31→21:30)
[2020-12-10] MEDS: VITAMIN D3 125 mcg (5,000 UNITS) PO SCH (09:32)
[2020-12-10] MEDS: VSL#3 PO SCH (09:32)
[2020-12-10] MEDS: LACRI-LUBE S.O.P. AFFEYE SCH ×2 (09:32→21:30)
[2020-12-10] MEDS: GLUCOPHAGE XR 24-HR PO SCH ×2 (09:33→21:30)
[2020-12-10] MEDS: ALBUMIN HUMAN 25%- 100 ML 100 ML IV SCH (11:22)
[2020-12-10] MEDS: PEPCID 20 MG IV PREMIX* 20 MG/50 ML BAG IV SCH ×2 (11:22→21:30)
[2020-12-10] MEDS: NORCURON INJ 10 MG VIAL 50 MG in NS 50 ML IV 50 ML IV PRN (15:41)
[2020-12-10] MEDS: LANOXIN INJ IVP SCH (15:43)
--- NOTE | 2020-12-10 18:22 | RAD ---
HISTORYINTERSTITIAL COVID PNEUMONIA, DROPPING 02 SATS Relevant Clinical InformationSTUDYCHEST, 1 VIEWCOMPARISONChest radiograph from earlier todayFINDINGSCardiac silhouette is stable in size. Diffuse bilateral infiltrates appear essentially unchanged since earlier today. There is no significant pleural effusion. Support lines and tubes remain stable/satisfactory in position without pneumothorax.IMPRESSIONStable chest exam.Electronically signed by: TANA THAO (Dec 10, 2020 18:20:16)
[2020-12-10] MEDS: NS 500 ML IV 500 ML IV ONE (19:19)
[2020-12-10] MEDS ORDERED: NS 1000 ML 1,000 ML IV ONE (20:47)
[2020-12-10] MEDS: MELATONIN PO SCH (21:30)
[2020-12-11 00:22] LABS: HEMOGLOBIN 8.9 g/dL (13.5-18.0)
[2020-12-11 00:26] LABS: HEMATOCRIT 25.6 % (42.0-54.0)
[2020-12-11] MEDS ORDERED: NS 500 ML IV 500 ML IV PRN (01:09)
[2020-12-11] MEDS ORDERED: NS 100 ML IV 100 ML ONE (01:35)
[2020-12-11] MEDS: LR 1000 ML IV 1,000 ML IV SCH ×4 (03:15→18:00)
[2020-12-11] MEDS: ASCORBIC ACID INJ MULTI-DOSE VIAL 1,500 MG in NS 100 ML IV 100 ML IV SCH ×3 (03:15→14:29)
[2020-12-11] MEDS: PERIACTIN TAB 4 MG PO SCH ×2 (06:00→14:29)
[2020-12-11] MEDS: CYTOTEC PO SCH ×2 (06:00→14:26)
[2020-12-11 06:06] LABS: ABG HCO3 24.3 mmol/L (22-26)
[2020-12-11 06:08] LABS: BASOPHILS % (AUTO) 0.1 % (0.2-1.0); EOSINOPHILS % (AUTO) 1.5 % (0.9-2.9); HEMATOCRIT 28.2 % (42.0-54.0); HEMOGLOBIN 9.8 g/dL (13.5-18.0); LYMPHOCYTES # (AUTO) 0.1 X10^3/uL (1.3-2.9); LYMPHOCYTES % (AUTO) 7.4 % (21.0-51.0); MEAN CORPUSCULAR HEMOGLOBIN 31.4 pg (27.0-34.0); MEAN CORPUSCULAR HGB CONC 34.7 g/dL (33.0-35.0); MEAN CORPUSCULAR VOLUME 90.3 fL (80.0-100.0); MEAN PLATELET VOLUME 9.9 fL (7.4-11.0); MONOCYTES # (AUTO) 0 x10^3/uL (0.3-0.8); MONOCYTES % (AUTO) 3.4 % (0.0-13.0); NEUTROPHILS # (AUTO) 0.9 x10^3/uL (2.2-4.8); NEUTROPHILS % (AUTO) 87.6 % (42.0-75.0); RED BLOOD COUNT 3.13 X10^6/uL (4.7-6.0); RED CELL DISTRIBUTION WIDTH 15.3 % (11.6-16.5)
[2020-12-11 06:10] LABS: ALBUMIN 1.8 g/dL (3.4-5.0); CARBON DIOXIDE 24.7 mmol/L (21-32); COR CA(FOR HYPOALB) 7.8 mg/dL (8.5-10.1); CREATININE 2.17 mg/dL (0.70-1.30); DIGOXIN 1.22 ng/mL (0.9-2); MAGNESIUM 2.4 mg/dL (1.7-2.9); TOTAL PROTEIN 3.9 g/dL (6.4-8.2)
[2020-12-11 06:32] LABS: PLATELET COUNT 15 X10^3/uL (150.0-450.0)
[2020-12-11 06:51] LABS: BURR CELLS 2+; PLATELET MORPHOLOGY COMMENT NORMAL (NORMAL)
[2020-12-11] MEDS: BROVANA IN SCH ×2 (08:15→22:17)
[2020-12-11] MEDS: PULMICORT NEB TX 0.5 MG NEB SCH ×2 (08:15→22:17)
[2020-12-11] MEDS ORDERED: PEPCID 20 MG IV PREMIX* 20 MG/50 ML BAG IV SCH (09:00)
[2020-12-11] MEDS ORDERED: NEUPOGEN INJ 480 MCG SC SCH (09:00)
[2020-12-11] MEDS: SOLU-Cortef INJ IVP SCH ×2 (09:14→14:26)
[2020-12-11] MEDS: ROCEPHIN VIAL 2 GRAMS 2 G in NS 100 ML IV + SPIKE MINIBAG* 100 ML IV SCH (09:15)
[2020-12-11] MEDS: PROTONIX INJ 40 MG VIAL IVP SCH (09:15)
[2020-12-11] MEDS: THIAMINE HCL INJ IVP SCH (09:23)
[2020-12-11] MEDS: ALBUMIN HUMAN 25%- 100 ML 100 ML IV SCH (09:37)
[2020-12-11] MEDS: LACRI-LUBE S.O.P. AFFEYE SCH (09:40)
[2020-12-11] MEDS ORDERED: NS 250 ML IV 250 ML IV ONE (09:53)
[2020-12-11] MEDS: LANOXIN INJ IVP SCH (10:00)
[2020-12-11] MEDS: ZYVOX 600MG IV 600 MG/300 ML BAG IV SCH (10:48)
[2020-12-11] MEDS: COREG TAB 6.25 MG PO SCH (10:49)
[2020-12-11] MEDS ORDERED: LANOXIN INJ IVP ONE ×2 (11:00→18:05)
[2020-12-11] MEDS: PROVENTIL NEB TX 0.083% 2.5MG/ 3ML NEB PRN (13:20)
[2020-12-11] MEDS: VITAMIN A PO SCH (14:27)
[2020-12-11] MEDS: GLUCOPHAGE XR 24-HR PO SCH (14:27)
[2020-12-11] MEDS: ACTOS PO SCH (14:27)
[2020-12-11] MEDS: VITAMIN D3 125 mcg (5,000 UNITS) PO SCH (14:27)
[2020-12-11] MEDS: ZINC SULFATE PO SCH (14:28)
[2020-12-11] MEDS: VSL#3 PO SCH (14:28)
[2020-12-11] MEDS ORDERED: LANOXIN INJ ONE (18:07)
[2020-12-11 19:03] LABS: ABG BASE EXCESS -8.4 mmol/L (-2.0-2.0); ABG HCO3 20.2 mmol/L (22-26)
[2020-12-11 19:04] LABS: ABG ALLEN TEST POS
[2020-12-11 19:15] VITALS: BP 66/45
[2020-12-11] MEDS: ELIQUIS PO SCH (19:33)
== END 2020-12-11 22:00 | disposition home or self-care (01) | DRG 177 ==
LOC: ER 19:07 → OBS 23:56 → MED/SURG 11-21 20:05 → ICU 11-28 14:48
PROVIDERS: ADMIT Internal Medicine; ATTEND Obstetrics & Gynecology Obstetrics
DX: J12.82 Pneumonia due to coronavirus disease 2019; I46.8 Cardiac arrest due to other underlying condition; E86.0 Dehydration; R79.89 Other specified abnormal findings of blood chemistry; R53.1 Weakness; U07.1 COVID-19; R26.89 Other abnormalities of gait and mobility; W18.39XA Other fall on same level, initial encounter; R06.89 Other abnormalities of breathing; I48.91 Unspecified atrial fibrillation; R79.82 Elevated C-reactive protein (CRP); J15.0 Pneumonia due to Klebsiella pneumoniae